=== PATIENT | male | born 1955 | race Caucasian/White ===

== ENCOUNTER 2016-12-23 20:03 | Inpatient (IN) | payer BC, MEDICARE, OTHER ==
[~2016-12-23] VITALS: Ht 181.6 cm; Wt 108.1 kg
[2016-12-23] MEDS ORDERED: NS IV 1000 ML 1,000 ML ONE (21:17)
--- NOTE | 2016-12-23 21:21 | ED Abdominal Pain ---
General Stated Complaint: VOMITING BOWEL ISSUES BACK PAIN SURGERY THIS WED Source of Information: Patient, Spouse Exam Limitations: No Limitations History of Present Illness Time Seen By Provider: 21:19 Initial Comments Patient has ER by primary conveyance with a chief complaint of left abdominal lower quadrant pain that started up yesterday after eating at a greasy spoon 2 nights ago. He says he started having a lot of pain in his LLQ abdomen and does not remember have a bowel movement for thepast couple days. He passed a small amount of rabbit pellet sized stool earlier today. He used an enema today without much stool out. He was scheduled to turn off the GB drain today but did not for fear it might worsen his pain. He put out 200 cc yesterday of bilious drainage. He has had another 100 cc since emptying the bag 14 hours ago at 0730. He is scheduled at [facility] to have his gallbladder taken out and he had some obstruction and had to have a stent and drain placed which has been draining into his leg bag. After eating he started expressing the pain one or 2 hours later that was excruciating in his right upper quadrant as well as left lower quadrant. It radiates around to the left flank. He has no history of kidney stones. He is having no dysuria. He does use Cialis for his prostate. He denies any recent trauma. Allergies and Home Medications Allergies Coded Allergies: No Known Drug Allergies (Unverified , 12/23/16) Review of Systems Constitutional: No chills, No fever EENTM: No Mouth Pain, No Mouth Swelling Respiratory: Denies Shortness of Air Cardiovascular: Denies Chest Pain, Denies Lightheadedness Gastrointestinal: See HPI, Denies Abdomen Distended, Abdominal Pain, Constipated, Denies Diarrhea, Nausea, Vomiting Genitourinary: Denies Burning, Denies Discharge Musculoskeletal: No back pain, No joint pain, No joint swelling Skin: No pruritus, No rash Psychiatric/Neurological: Denies Headache, Denies Numbness, Denies Paresthesia Past Gvclgxy-Joudun-Qihaoe Hx Patient Social History Alcohol Use: Denies Use Recreational Drug Use: No Smoking Status: Current Someday Smoker Type Used: Pipe 2nd Hand Smoke Exposure: No Recent Foreign Travel: No Contact w/Someone Who Travel: No Physical Exam Vital Signs VS - Last 72 Hours, by Label 12/23/16 20:58 Temp 98.5 Pulse 75 Resp 24 B/P (MAP) 160/107 Pulse Ox 98 O2 Delivery Room Air Capillary Refill : General Appearance: WD/WN, moderate distress (writhing in pain) HEENT: PERRL/EOMI, pharynx normal Neck: non-tender, full range of motion, normal inspection Respiratory: chest non-tender, lungs clear, normal breath sounds Cardiovascular: normal peripheral pulses, regular rate, rhythm, no edema Peripheral Pulses: 2+ Dorsalis Pedis (R), 2+ Left Dors-Pedis (L), 2+ Radial Pulses (R), 2+ Radial Pulses (L) Gastrointestinal: normal bowel sounds (towards the hypoactive end of the spectrum), distended (tympany), guarding, No rebound, tenderness (diffusely) Extremities: normal range of motion, non-tender, normal inspection, normal capillary refill Back: normal inspection Male: normal genitalia, no hernia (inguinal canals normal without palpable mass on valsalva) Neurologic/Psychiatric: alert, normal mood/affect, oriented x 3 Skin: normal color, warm/dry Focused Exam Evaluation Lactate Level Laboratory Tests 12/23/16 22:38: Lactic Acid Level 2.08*H Lactic Acid Level Laboratory Tests Test 12/23/16 22:38 Lactic Acid Level 2.08 MMOL/L (0.50-2.00) *H Progress/Results/Core Measures Results/Orders Lab Results Laboratory Tests Test 12/23/16 21:11 12/23/16 22:38 12/23/16 22:53 Range/Units White Blood Count 16.0 H 4.3-11.0 10^3/uL Red Blood Count 5.14 4.35-5.85 10^6/uL Hemoglobin 15.3 13.3-17.7 G/DL Hematocrit 42 40-54 % Mean Corpuscular Volume 82 80-99 FL Mean Corpuscular Hemoglobin 30 25-34 PG Mean Corpuscular Hemoglobin Concent 37 H 32-36 G/DL Red Cell Distribution Width 13.3 10.0-14.5 % Platelet Count 217 130-400 10^3/uL Mean Platelet Volume 11.7 H 7.4-10.4 FL Neutrophils (%) (Auto) 79 H 42-75 % Lymphocytes (%) (Auto) 12 12-44 % Monocytes (%) (Auto) 7 0-12 % Eosinophils (%) (Auto) 1 0-10 % Basophils (%) (Auto) 0 0-10 % Neutrophils # (Auto) 12.6 H 1.8-7.8 X 10^3 Lymphocytes # (Auto) 2.0 1.0-4.0 X 10^3 Monocytes # (Auto) 1.2 H 0.0-1.0 X 10^3 Eosinophils # (Auto) 0.2 0.0-0.3 10^3/uL Basophils # (Auto) 0.1 0.0-0.1 10^3/uL Neutrophils % (Manual) 67 % Lymphocytes % (Manual) 29 % Monocytes % (Manual) 1 % Eosinophils % (Manual) 3 % Basophils % (Manual) 0 % Band Neutrophils 0 % Blood Morphology Comment NORMAL Sodium Level 136 135-145 MMOL/L Potassium Level 3.4 L 3.6-5.0 MMOL/L Chloride Level 106 98-107 MMOL/L Carbon Dioxide Level 16 L 21-32 MMOL/L Anion Gap 14 5-14 MMOL/L Blood Urea Nitrogen 10 7-18 MG/DL Creatinine 1.26 0.60-1.30 MG/DL Estimat Glomerular Filtration Rate 59 BUN/Creatinine Ratio 8 Glucose Level 100 70-105 MG/DL Calcium Level 9.3 8.5-10.1 MG/DL Magnesium Level 2.3 1.8-2.4 MG/DL Total Bilirubin 1.0 0.1-1.0 MG/DL Aspartate Amino Transf (AST/SGOT) 32 5-34 U/L Alanine Aminotransferase (ALT/SGPT) 71 H 0-55 U/L Alkaline Phosphatase 120 40-136 U/L Total Protein 7.2 6.4-8.2 GM/DL Albumin 4.5 3.2-4.5 GM/DL Lipase 45 8-78 U/L Lactic Acid Level 2.08 *H 0.50-2.00 MMOL/L Urine Color YELLOW Urine Clarity CLEAR Urine pH 5 5-9 Urine Specific [place] 1.010 L 1.016-1.022 Urine Protein 1+ H NEGATIVE Urine Glucose (UA) NEGATIVE NEGATIVE Urine Ketones NEGATIVE NEGATIVE Urine Nitrite NEGATIVE NEGATIVE Urine Bilirubin NEGATIVE NEGATIVE Urine Urobilinogen NORMAL NORMAL MG/DL Urine Leukocyte Esterase NEGATIVE NEGATIVE Urine RBC (Auto) 5+ H NEGATIVE Urine RBC 0-2 /HPF Urine WBC RARE /HPF Urine Crystals NONE /LPF Urine Bacteria NEGATIVE /HPF Urine Casts NONE /LPF Urine Mucus NEGATIVE /LPF Urine Culture Indicated NO My Orders Orders - JUDD GARNER Ondansetron Injection (Zofran Injectio (12/23/16 21:30) Ketorolac Injection (Toradol Injection) (12/23/16 21:30) Saline Lock/Iv-Start (12/23/16 21:24) Ns Iv 1000 Ml (Sodium Chloride 0.9%) (12/23/16 21:24) Ns Iv 1000 Ml (Sodium Chloride 0.9%) (12/23/16 21:17) Ct Abdomen/Pelvis W (12/23/16 21:29) Cbc With Automated Diff (12/23/16 21:29) Comprehensive Metabolic Panel (12/23/16 21:29) Lactic Acid Analyzer (12/23/16 21:29) Lipase (12/23/16 21:29) Magnesium (12/23/16 21:29) Ua Culture If Indicated (12/23/16 21:29) Manual Differential (12/23/16 21:11) Iohexol Injection (Omnipaque 350 Mg/Ml 1 (12/23/16 22:15) Ns (Ivpb) (Sodium Chloride 0.9% Ivpb Bag (12/23/16 22:15) Potassium Cl 10meq/50ml Ivpb (Kcl 10 Meq (12/23/16 22:45) Fentanyl Injection (Sublimaze Injection (12/23/16 23:00) Ns Iv 500 Ml (Sodium Chloride 0.9%) (12/23/16 23:43) Ns Iv 500 Ml (Sodium Chloride 0.9%) (12/24/16 00:00) Ceftriaxone Injection (Rocephin Injectio (12/24/16 01:15) Medications Given in ED Current Medications Medications Dose Ordered Sig/Yelena Route Start Time Stop Time Status Last Admin Dose Admin Ceftriaxone Sodium 1000 mg/ Sodium Chloride 50 ml @ 100 mls/hr ONCE ONCE IV 12/24/16 01:15 12/24/16 01:44 12/24/16 01:09 100 MLS/HR Fentanyl Citrate 50 mcg ONCE ONCE IVP 12/23/16 23:00 12/23/16 23:01 DC 12/23/16 23:40 50 MCG Iohexol 100 ml ONCE ONCE IV 12/23/16 22:15 12/23/16 22:16 DC 12/23/16 22:12 100 ML Ketorolac Tromethamine 15 mg ONCE ONCE IVP 12/23/16 21:30 12/23/16 21:31 DC 12/23/16 21:26 15 MG Ondansetron HCl 4 mg ONCE ONCE IVP 12/23/16 21:30 12/23/16 21:31 DC 12/23/16 21:26 4 MG Potassium Chloride 50 ml @ 50 mls/hr ONCE ONCE IV 12/23/16 22:45 12/23/16 23:45 DC 12/23/16 23:40 50 MLS/HR Sodium Chloride 100 ml ONCE ONCE IV 12/23/16 22:15 12/23/16 22:16 DC 12/23/16 22:12 80 ML Sodium Chloride 1,000 ml @ 0 mls/hr Q0M ONCE IV 12/23/16 21:24 12/23/16 21:25 DC 12/23/16 21:26 1,000 MLS/HR Vital Signs/I&O Vital Sign - Last 12Hours 12/23/16 20:58 Temp 98.5 Pulse 75 Resp 24 B/P (MAP) 160/107 Pulse Ox 98 O2 Delivery Room Air Progress Note : Time: 21:38 Progress Note Drain seems to be working appropriately so it's unlikely to represent a biliary leak. He may be having ileus given his decreased bowel sounds and appearance of distention of his abdomen and tenderness all over. We'll get an lactate also to make sure there is not any kind of ischemia. Obstruction is certainly also a possibility however he is not hyperactive bowel sounds. Diagnostic Imaging Diagonstic Imaging: CT Plain Films/CT/US/NM/MRI: abdomen, pelvis (with) Comments Cholecystotomy tube seen in a collapsed gallbladder. A 2 mm stone in the left ureterovesical junction resulting in mild left-sided hydrogen ureter nephrosis with associated perinephric fat stranding. Mildly prominent air fluid filled small bowel loops are seen measuring up to 2.7 m diameter that may represent an ileus. Air-fluid level seen within the colon as well. This may represent diarrheal disease versus early infectious/inflammatory enterocolitis. Clinically correlates late. Hepatic steatosis. Punctate nonobstructing stone seen in the interpolar region of the left kidney. The adrenal glands, pancreas, spleen are unremarkable. Small fat-containing inguinal hernia seen on the left. Grade 1 retrolisthesis of L5 on S1. Status post appendectomy. Reviewed: Reviewed [place] Study, Reviewed by Me Departure Communication (Admissions) Time/Spoke to Admitting Phy: 01:00 Communication Patient was discussed by Dr. Shafer about his lab findings, clinical findings, ileus, kidney stone in the left UVJ, sepsis and he is willing see the patient. He recommends Rocephin IV. Impression Impression: Primary Impression: Kidney stone Additional Impressions: Sepsis Qualified Codes: A41.9 - Sepsis, unspecified organism Ileus Cholecystostomy care Disposition: ADMITTED INPATIENT Condition: Stable Admissions Decision to Admit Reason: Admit from ER (General) Decision to Admit/Date: Dec 24, 2016 Time/Decision to Admit Time: 01:41 Departure-Patient Inst. Referrals: NO,LOCAL PHYSICIAN (PCP) Primary Care Physician Copy Copies To 1: BART SHAFER MD, TITUS J Dec 23, 2016 21:21
[2016-12-23] MEDS ORDERED: NS IV 1000 ML 1,000 ML IV ONE (21:24)
[2016-12-23] MEDS ORDERED: ONDANSETRON 4 MG/2 ML (SDV) Z0FRAN IVP ONE (21:30)
[2016-12-23] MEDS ORDERED: KETOROLAC 30 MG/ML VIAL IVP ONE (21:30)
[2016-12-23 21:37] LABS: BASOPHILS # (AUTO) 0.1 10^3/uL (0.0-0.1); BASOPHILS % (AUTO) 0 % (0-10); EOSINOPHILS # (AUTO) 0.2 10^3/uL (0.0-0.3); EOSINOPHILS % (AUTO) 1 % (0-10); LYMPHOCYTES % (AUTO) 12 % (12-44); MEAN CORPUSCULAR HEMOGLOBIN 30 PG (25-34); MEAN CORPUSCULAR HGB CONC 37 G/DL (32-36); MEAN CORPUSCULAR VOLUME 82 FL (80-99); MEAN PLATELET VOLUME 11.7 FL (7.4-10.4); MONOCYTES # (AUTO) 1.2 X 10^3 (0.0-1.0); MONOCYTES % (AUTO) 7 % (0-12); NEUTROPHILS # (AUTO) 12.6 X 10^3 (1.8-7.8); NEUTROPHILS % (AUTO) 79 % (42-75); PLATELET COUNT 217 10^3/uL (130-400); RED BLOOD COUNT 5.14 10^6/uL (4.35-5.85); RED CELL DISTRIBUTION WIDTH 13.3 % (10.0-14.5)
[2016-12-23 21:49] LABS: ALBUMIN 4.5 GM/DL (3.2-4.5); CALCIUM 9.3 MG/DL (8.5-10.1); CREATININE SERUM 1.26 MG/DL (0.60-1.30); MAGNESIUM 2.3 MG/DL (1.8-2.4); POTASSIUM 3.4 MMOL/L (3.6-5.0); TOTAL PROTEIN 7.2 GM/DL (6.4-8.2)
[2016-12-23 21:55] LABS: BAND NEUTROPHILS 0 %; BASOPHILS % (MANUAL) 0 %; EOSINOPHILS % (MANUAL) 3 %; LYMPHOCYTES % (MANUAL) 29 %; NEUTROPHILS % (MANUAL) 67 %
[2016-12-23] MEDS ORDERED: IOHEXOL 350 MG/ML 100 ML (OMNIPAQUE 350) VIAL IV ONE (22:15)
[2016-12-23] MEDS ORDERED: NS 100 ML (IVPB) BAG IV ONE (22:15)
[2016-12-23] MEDS ORDERED: POTASSIUM CL 10MEQ/50ML IVPB 50 ML IV ONE (22:45)
[2016-12-23] MEDS ORDERED: fentaNYL INJECTION 100 MCG/2 ML AMP IVP ONE (23:00)
[2016-12-23 23:01] LABS: BILIRUBIN,URINE NEGATIVE (NEGATIVE); KETONES,URINE NEGATIVE (NEGATIVE); LEUKOCYTE ESTERASE ,URINE NEGATIVE (NEGATIVE); NITRITE,URINE NEGATIVE (NEGATIVE); PH,URINE 5 (5-9); PROTEIN,URINE 1+ (NEGATIVE); UROBILINOGEN,URINE NORMAL (NORMAL)
[2016-12-23 23:10] LABS: WBC,URINE RARE /HPF
[2016-12-23] MEDS ORDERED: NS IV 500 ML 500 ML ONE (23:43)
[2016-12-24] MEDS ORDERED: NS IV 500 ML 500 ML IV SCH
[2016-12-24] MEDS ORDERED: cefTRIAXone INJECTION 1,000 MG in NS (IVPB) 50 ML IV ONE (01:15)
[2016-12-24] MEDS ORDERED: fentaNYL INJECTION 100 MCG/2 ML AMP IV PRN (04:00)
[2016-12-24] MEDS ORDERED: ONDANSETRON 4 MG/2 ML (SDV) Z0FRAN IV PRN (04:00)
[2016-12-24] MEDS: ALFUZOSIN HCL 10 MG TAB (UROXATRAL) PO SCH ×2 (04:03→20:14)
[2016-12-24] MEDS: NS IV 1000 ML 1,000 ML IV SCH (04:03)
[2016-12-24] MEDS: KETOROLAC 15 MG/ML VIAL IV PRN ×2 (04:04→12:10)
[2016-12-24 04:05] VITALS: BP 125/80
[2016-12-24 06:06] LABS: BASOPHILS % (AUTO) 0 % (0-10); EOSINOPHILS # (AUTO) 0.2 10^3/uL (0.0-0.3); EOSINOPHILS % (AUTO) 2 % (0-10); LYMPHOCYTES % (AUTO) 20 % (12-44); MEAN CORPUSCULAR HEMOGLOBIN 30 PG (25-34); MEAN CORPUSCULAR HGB CONC 36 G/DL (32-36); MEAN CORPUSCULAR VOLUME 83 FL (80-99); MEAN PLATELET VOLUME 11.5 FL (7.4-10.4); MONOCYTES # (AUTO) 0.9 X 10^3 (0.0-1.0); MONOCYTES % (AUTO) 9 % (0-12); NEUTROPHILS # (AUTO) 6.8 X 10^3 (1.8-7.8); NEUTROPHILS % (AUTO) 69 % (42-75); PLATELET COUNT 180 10^3/uL (130-400); RED BLOOD COUNT 4.78 10^6/uL (4.35-5.85); RED CELL DISTRIBUTION WIDTH 13.4 % (10.0-14.5); WHITE BLOOD COUNT 9.9 10^3/uL (4.3-11.0)
[2016-12-24 06:24] LABS: ANION GAP 9 MMOL/L (5-14); BLOOD UREA NITROGEN 10 MG/DL (7-18); BUN/CREATININE RATIO 9; CALCIUM 8.4 MG/DL (8.5-10.1); CARBON DIOXIDE 20 MMOL/L (21-32); CHLORIDE 109 MMOL/L (98-107); GFR ESTIMATED > 60; GLUCOSE 88 MG/DL (70-105); POTASSIUM 3.3 MMOL/L (3.6-5.0); SODIUM 138 MMOL/L (135-145)
[2016-12-24 08:00] VITALS: BP 105/68
--- NOTE | 2016-12-24 08:55 | Diagnostic Imaging Report ---
PROCEDURE: CT abdomen and pelvis with contrast. TECHNIQUE: Multiple contiguous axial images were obtained through the abdomen and pelvis after administration of intravenous contrast. INDICATION: Abdominal pain and constipation. FINDINGS: There is minimal atelectasis in the left lung base. There is diffuse fatty infiltration of the liver. The spleen, the pancreas, and adrenal glands appear unremarkable. There is a cholecystostomy tube seen. There is a decompressed gallbladder without stones seen. No surrounding inflammatory changes or fluid. There is an obstructive stone measuring 2 mm at the left UVJ resulting in mild hydroureteronephrosis on the left side. The right kidney demonstrates a 2-mm stone in the interpolar region. No hydronephrosis on the right side. The abdominal aorta is normal in caliber. The prostate is 5.9 cm in transverse dimension, enlarged. There is excessive amount of fluid in the colon and some bowel loops without significant dilatation. This could relate to enteritis. The gastric wall is also thickened. The osseous structures demonstrate a 9-mm sclerotic focus in T11 vertebral body. IMPRESSION: 1. There is mild hydroureteronephrosis on the left side secondary to a 2-mm stone at the left UVJ. 2. Findings may relate to gastroenteritis. 3. Cholecystectomy tube in place. Dictated by: Dictated on workstation # [id number]
--- NOTE | 2016-12-24 09:23 | History & Physical-Hospitalist ---
HPI History of Present Illness: HPI/Chief Complaint CC: Abd pain HPI: Pt is a 61yoCM with a PMH of parkinson's disease, and cholecystitis with cholecystostomy placement on 10/22/2016 at [facility] who presented with abd pain. He was told by his surgeon in to turn the drain off last week and then he developed LLQ abd pain and back pain on Saturday. He then turned the drain back on without any improvement. He also complains of "burning up." He was to have surgery to remove the drain this Saturday. His pain continued to worsen over the weekend prompting him to seek evaluation in the ER where he was found to meet sepsis criteria and admitted for abx and pain management. Source: patient, family Date Seen 12/24/16 Time Seen by Provider: 09:00 Attending Physician Wyatt Conte MD PCP No,Local Physician Referring Physician Date of Admission Dec 24, 2016 at 01:35 Home Medications & Allergies Home Medications Reviewed patient Home Medication Reconciliation Form Allergies Allergies Coded Allergies No Known Drug Allergies (Unverified12/23/16) Past Pajsecn-Hnompe-Wlnmay Hx Patient Social History Alcohol Use: Denies Use Recreational Drug Use: No Smoking Status: Current Everyday Smoker Type Used: Pipe 2nd Hand Smoke Exposure: No Physical Abuse Screen: No Sexual Abuse: No Recent Foreign Travel: No Contact w/other who traveled: No Recent Hopitalizations: Yes Recent Infectious Disease Expo: No Seasonal Allergies Seasonal Allergies: Yes Surgeries Abdominal Respiratory No Cardiovascular No Neurological Yes Parkinson's Disease Reproductive System Sexually Transmitted Disease: No HIV/AIDS: No Genitourinary Prostate Problems, UTI-Chronic Gastrointestinal Gastroesophageal Reflux, Hemorrhoids, Gall Bladder Disease Musculoskeletal No Endocrine History of Endocrine Disorders: No HEENT History of HEENT Disorders: Yes HEENT Disorders: Glaucoma Loss of Vision: Bilateral Hearing Impairment: Hard of Hearing Cancer No Psychosocial History of Psychiatric Problem: No Integumentary History of Skin or Integumenta: No Blood Transfusions History of Blood Disorders: No Review of Systems Constitutional: chills, fever, weakness EENTM: no symptoms reported Respiratory: No cough, No short of breath Cardiovascular: No chest pain, No palpitations Gastrointestinal: abdominal pain (LLQ), No nausea Genitourinary: No dysuria, No frequency Psychiatric/Neurological: Tremors Physical Exam Physical Exam Vital Signs Vital Sign - Last 12Hours 12/23/16 20:58 Temp 98.5 Pulse 75 Resp 24 B/P (MAP) 160/107 Pulse Ox 98 O2 Delivery Room Air Capillary Refill : Less Than 3 Seconds General Appearance: No Apparent Distress, WD/WN HEENT: PERRL/EOMI, No Scleral Icterus (L), No Scleral Icterus (R) Neck: Non Tender, Supple Respiratory: Lungs Clear, No Accessory Muscle Use, No Respiratory Distress Cardiovascular: Regular Rate, Rhythm, No Edema, No Murmur Gastrointestinal: Normal Bowel Sounds, Non Tender, Soft, Tenderness (to palpation in LLQ) Neurologic/Psychiatric: Alert, Oriented x3 Results Results/Procedures Lab Laboratory Tests 12/23/16 21:11 12/24/16 05:[address] Abd/Pelvis IMPRESSION: 1. There is mild hydroureteronephrosis on the left side secondaryto a 2-mm stone at the left UVJ. 2. Findings may relate to gastroenteritis. 3. Cholecystectomy tube in place Assessment/Plan Admission Diagnosis Sepsis Assessment and Plan See Problems Diagnosis/Problems Diagnosis/Problems (1) Sepsis Status: Resolved Assessment & Plan: met sepsis criteria on arrival but now resolved Will continue on Rocephin Day #2 Will get blood cultures Will obstructing stone- will consulte Urology for evaluation Will also consult Surgery given cholecystostomy tube - Culture drainage Qualifiers: Qualified Codes: A41.9 - Sepsis, unspecified organism (2) Cholecystostomy care Status: Acute Assessment & Plan: In place since 10/2016, follows with Dr Guajardo in Will consult Surgery here for evaluation (3) Parkinson disease Status: Chronic Assessment & Plan: At Baseline, holding home meds while NPO (4) Hypokalemia Status: Acute Assessment & Plan: Will replace (5) Prophylactic measure Assessment & Plan: SCDs for now until surgical evaluation NPO Clinical Quality Measures DVT/VTE Risk/Contraindication: Risk Factor Score Per Nursin RFS Level Per Nursing on Admit: 4+=Very High KIRSTEN HERNDON MD Dec 24, 2016 09:23
[2016-12-24] MEDS ORDERED: CARB1TAB19 PO (09:26)
[2016-12-24] MEDS ORDERED: TADA5TAB3 PO (09:26)
[2016-12-24] MEDS ORDERED: ROPI4TAB3 PO (09:29)
[2016-12-24] MEDS ORDERED: CETI10TA20 PO (09:29)
[2016-12-24] MEDS ORDERED: FLUT9.9S NS (09:29)
[2016-12-24] MEDS ORDERED: ONDA4TAB10 PO (09:32)
[2016-12-24 12:00] VITALS: BP 106/69
--- NOTE | 2016-12-24 12:04 | Consultation ---
History of Present Illness History of Present Illness Patient Consulted On(alejandro/time) 12/24/16 11:57 Time Seen by Provider: 11:29 History of Present Illness Surgery asked to consult regarding LLQ abdominal pain, hydroureter (Urologist out of town) and Cholecystostomy tube management. HPI: Pt is a 61yoCM with a PMH of parkinson's disease, and cholecystitis with cholecystostomy placement on 10/22/2016 at [facility] who presented to the ER last night with severe abd pain. He told ER physician he thinks it started after eating at the "[employer]" restaurant on Saturday. He was told by his surgeon in to turn the drain off Saturday for planned surgery on Saturday. Because of the LLQ abd pain and back pain; he then turned the drain back on without any improvement. He also complained of some constipation and then small "rabbit sized pellets of poop." He also complained of "burning up" last night. His pain continued to worsen over the weekend prompting him to seek evaluation in the ER. He was found to meet sepsis criteria and admitted for abx and pain management. Nothing seemed to make pain better. When seen today he denied any pain since maybe 4 am, he denies dysuria or hematuria. He denies every having Kidney stone before, but states over past few weeks he has been drinking "a lot more soda, because my stomach has been upset". He states he has some occasional left inguinal pain, but never bad and has not noticed a bulge. States his son and father have had hernia repairs. Allergies and Home Medications Allergies Coded Allergies: No Known Drug Allergies (Unverified , 12/23/16) Home Medications Carbidopa/Levodopa 1 Each Tablet, 1 TAB PO 0730,1400,193, (Reported) Cetirizine HCl 10 Mg Tablet, 10 MG PO DAILY, (Reported) Fluticasone Propionate 9.9 Ml Melvin.susp, 2 SPRAY NS HS, (Reported) Ondansetron HCl 4 Mg Tablet, 4 MG PO Q8H PRN for NAUSEA/VOMITING-1ST LINE, ( Reported) Ropinirole HCl 4 Mg Tablet, 4 MG PO 0730,1400,1930, (Reported) Tadalafil 5 Mg Tablet, 5 MG PO HS, (Reported) Past Gwvzmvy-Zbenjy-Yhdter Hx Patient Social History Alcohol Use: Denies Use Recreational Drug Use: No Smoking Status: Current Everyday Smoker Type Used: Pipe 2nd Hand Smoke Exposure: No Recent Foreign Travel: No Contact w/Someone Who Travel: No Recent Infectious Disease Expo: No Recent Hopitalizations: Yes Physical Abuse Screen: No Sexual Abuse: No Seasonal Allergies Seasonal Allergies: Yes Surgeries Surgeries: Abdominal Respiratory History of Respiratory Disorde: No Cardiovascular History of Cardiac Disorders: No Neurological History of Neurological Disord: Yes Neurological Disorders: Parkinson's Disease Reproductive System Sexually Transmitted Disease: No HIV/AIDS: No Genitourinary Genitourinary Disorders: Prostate Problems, UTI-Chronic Gastrointestinal Gastrointestinal Disorders: Gastroesophageal Reflux, Hemorrhoids, Gall Bladder Disease Musculoskeletal History of Musculoskeletal Dis: No Endocrine History of Endocrine Disorders: No HEENT History of HEENT Disorders: Yes HEENT Disorders: Glaucoma Loss of Vision: Bilateral Hearing Impairment: Hard of Hearing Cancer History of Cancer: No Psychosocial History of Psychiatric Problem: No Integumentary History of Skin or Integumenta: No Blood Transfusions History of Blood Disorders: No Family Medical History Significant Family History: Hypertension (Mother and Father), Other Conditions/ Hx (Mother has dementia from Alzheimer's) Review of Systems-General Constitutional: chills, fever, weakness EENTM: hearing loss, blurred vision, No epistaxis, No throat swelling Respiratory: No cough, No dyspnea on exertion, No hemoptysis, No short of breath Cardiovascular: No chest pain, No Hx of Intervention, No palpitations Gastrointestinal: RUQ, LLQ, constipation, No diarrhea, No hematemesis, No melena, No vomiting Genitourinary: No dysuria, frequency, No hematuria, hesitancy Musculoskeletal: No back pain, No joint pain, muscle stiffness Skin: No dryness, No lesions, No lumps Psychiatric/Neurological: Denies Anxiety, Denies Depressed, Tremors ( Parkinsons dz) Physical Exam-General Problems Physical Exam Vital Signs Vital Sign - Last 12Hours 12/23/16 20:58 Temp 98.5 Pulse 75 Resp 24 B/P (MAP) 160/107 Pulse Ox 98 O2 Delivery Room Air Capillary Refill : Less Than 3 Seconds General Appearance: WD/WN, no apparent distress Eyes: Bilateral Eye PERRL, Bilateral Eye EOMI HEENT: pharynx normal, No scleral icterus (R), No scleral icterus (L), No pale conjunctivae (R), No pale conjunctivae (L) Neck: non-tender, full range of motion, supple Respiratory: chest non-tender, lungs clear, normal breath sounds, no respiratory distress, no accessory muscle use Cardiovascular: regular rate, rhythm, no edema, no murmur Gastrointestinal: normal bowel sounds, soft, no organomegaly, tenderness (RUQ and LLQ plus left flank), other (Cholecystostomy tube in RUQ) Rectal: deferred Back: CVA tenderness (L), No vertebral tenderness Extremities: no pedal edema, no calf tenderness, normal capillary refill Neurologic/Psychiatric: alert, oriented x 3, depressed affect, other Skin: normal color, warm/dry Lymphatic: no adenopathy (neck, axilla or groin) Data Review Labs Laboratory Tests 12/23/16 21:11: White Blood Count 16.0H, Red Blood Count 5.14, Hemoglobin 15.3, Hematocrit 42, Mean Corpuscular Volume 82, Mean Corpuscular Hemoglobin 30, Mean Corpuscular Hemoglobin Concent 37H, Red Cell Distribution Width 13.3, Platelet Count 217, Mean Platelet Volume 11.7H, Neutrophils (%) (Auto) 79H, Lymphocytes (%) (Auto) 12, Monocytes (%) (Auto) 7, Eosinophils (%) (Auto) 1, Basophils (%) (Auto) 0, Neutrophils # (Auto) 12.6H, Lymphocytes # (Auto) 2.0, Monocytes # (Auto) 1.2H, Eosinophils # (Auto) 0.2, Basophils # (Auto) 0.1, Neutrophils % (Manual) 67, Lymphocytes % (Manual) 29, Monocytes % (Manual) 1, Eosinophils % (Manual) 3, Basophils % (Manual) 0, Band Neutrophils 0, Blood Morphology Comment NORMAL, Sodium Level 136, Potassium Level 3.4L, Chloride Level 106, Carbon Dioxide Level 16L, Anion Gap 14, Blood Urea Nitrogen 10, Creatinine 1.26, Estimat Glomerular Filtration Rate 59, BUN/Creatinine Ratio 8, Glucose Level 100, Calcium Level 9.3, Magnesium Level 2.3, Total Bilirubin 1.0, Aspartate Amino Transf (AST/SGOT) 32, Alanine Aminotransferase (ALT/SGPT) 71H, Alkaline Phosphatase 120, Total Protein 7.2, Albumin 4.5, Lipase 45 12/23/16 22:38: Lactic Acid Level 2.08*H 12/23/16 22:53: Urine Color YELLOW, Urine Clarity CLEAR, Urine pH 5, Urine Specific Kenna 1.010L, Urine Protein 1+H, Urine Glucose (UA) NEGATIVE, Urine Ketones NEGATIVE, Urine Nitrite NEGATIVE, Urine Bilirubin NEGATIVE, Urine Urobilinogen NORMAL, Urine Leukocyte Esterase NEGATIVE, Urine RBC (Auto) 5+H, Urine RBC 0-2, Urine WBC RARE, Urine Crystals NONE, Urine Bacteria NEGATIVE, Urine Casts NONE, Urine Mucus NEGATIVE, Urine Culture Indicated NO 12/24/16 01:00: Lactic Acid Level 1.63 12/24/16 05:45: White Blood Count 9.9, Red Blood Count 4.78, Hemoglobin 14.4, Hematocrit 40, Mean Corpuscular Volume 83, Mean Corpuscular Hemoglobin 30, Mean Corpuscular Hemoglobin Concent 36, Red Cell Distribution Width 13.4, Platelet Count 180, Mean Platelet Volume 11.5H, Neutrophils (%) (Auto) 69, Lymphocytes (%) (Auto) 20 , Monocytes (%) (Auto) 9, Eosinophils (%) (Auto) 2, Basophils (%) (Auto) 0, Neutrophils # (Auto) 6.8, Lymphocytes # (Auto) 2.0, Monocytes # (Auto) 0.9, Eosinophils # (Auto) 0.2, Basophils # (Auto) 0.0, Sodium Level 138, Potassium Level 3.3L, Chloride Level 109H, Carbon Dioxide Level 20L, Anion Gap 9, Blood Urea Nitrogen 10, Creatinine 1.10, Estimat Glomerular Filtration Rate > 60, BUN/ Creatinine Ratio 9, Glucose Level 88, Calcium Level 8.4L Assessment/Plan Assessment/Plan Assessment/Plan 1. LLQ pain secondary to #2 2. Left Ureterolithiasis, 2mm stone stuck at UVJ 3. Microscopic Hematuria, no bacteria seen on UA and culture not indicated 4. Left inguinal hernia 5. Cholecystomy tube I do not believe the abdominal pain has anything to do with intestines or cholecystomy tube. He does have a LIH, confirmed by CT but this is not where pt is describing his pain. LIH does not need to be fixed unless it becomes problem in the future. Pt has reported perinephric stranding and 2mm stone stuck at UVJ per radiology reading. Needs to increase fluids, stop drinking soda and strain his urine. I also recommended he call surgeon today to see if they would want to delay his surgery or proceed with it on Saturday. Told pt to go ahead and close cholecystostomy tube off again. He can be d/c'd with Toradol for pain and strainer for urine (to make sure he passes stone). No surgery necessary at this time, thank you for this consult. Diagnosis/Problems Diagnosis/Problems (1) Sepsis Status: Resolved Assessment & Plan: met sepsis criteria on arrival but now resolved Will continue on Rocephin Day #2 Will get blood cultures Will obstructing stone- will consulte Urology for evaluation Will also consult Surgery given cholecystostomy tube - Culture drainage Qualifiers: Qualified Codes: A41.9 - Sepsis, unspecified organism (2) Cholecystostomy care Status: Acute Assessment & Plan: In place since 10/2016, follows with Dr Guajardo in [place] Will consult Surgery here for evaluation (3) Parkinson disease Status: Chronic Assessment & Plan: At Baseline, holding home meds while NPO (4) Hypokalemia Status: Acute Assessment & Plan: Will replace (5) Prophylactic measure Assessment & Plan: SCDs for now until surgical evaluation NPO Clinical Quality Measures DVT/VTE Risk/Contraindication: Risk Factor Score Per Nursin RFS Level Per Nursing on Admit: 4+=Very High JANEL JACKSON DO Dec 24, 2016 12:04
[2016-12-24] MEDS: SINEMET 25/100 (CARBIDOPA/LEVODOPA) TAB PO SCH ×2 (15:44→20:14)
[2016-12-24] MEDS: rOPINIRole 1 MG (REQUIP) TABLET PO SCH ×2 (15:46→20:14)
[2016-12-24 16:30] VITALS: BP 103/62
[2016-12-24 19:30] VITALS: BP 114/65
[2016-12-24] MEDS ORDERED: NON-FORMULARY MEDICATION 1 EA EA (Tadalafil 5 MG) PO SCH (21:00)
[2016-12-24] MEDS ORDERED: cefTRIAXone 1 GM/NS 50 ML IVPB IV SCH ×2 (21:00)
[2016-12-24] MEDS ORDERED: FLUTICASONE NASAL SPRAY (FLONASE) 16 GM BTL NS SCH (21:00)
[2016-12-25 00:35] VITALS: BP 121/61
[2016-12-25] MEDS: NS IV 1000 ML 1,000 ML IV SCH (00:38)
[2016-12-25 04:37] VITALS: BP 126/62
[2016-12-25 06:05] LABS: BASOPHILS % (AUTO) 1 % (0-10); EOSINOPHILS # (AUTO) 0.3 10^3/uL (0.0-0.3); EOSINOPHILS % (AUTO) 4 % (0-10); LYMPHOCYTES # (AUTO) 2.6 X 10^3 (1.0-4.0); LYMPHOCYTES % (AUTO) 33 % (12-44); MEAN CORPUSCULAR HEMOGLOBIN 30 PG (25-34); MEAN CORPUSCULAR HGB CONC 36 G/DL (32-36); MEAN CORPUSCULAR VOLUME 84 FL (80-99); MEAN PLATELET VOLUME 11.6 FL (7.4-10.4); MONOCYTES # (AUTO) 0.7 X 10^3 (0.0-1.0); MONOCYTES % (AUTO) 8 % (0-12); NEUTROPHILS # (AUTO) 4.3 X 10^3 (1.8-7.8); NEUTROPHILS % (AUTO) 55 % (42-75); PLATELET COUNT 171 10^3/uL (130-400); RED BLOOD COUNT 4.47 10^6/uL (4.35-5.85); RED CELL DISTRIBUTION WIDTH 13.4 % (10.0-14.5); WHITE BLOOD COUNT 7.9 10^3/uL (4.3-11.0)
[2016-12-25 06:25] LABS: ANION GAP 10 MMOL/L (5-14); BLOOD UREA NITROGEN 9 MG/DL (7-18); BUN/CREATININE RATIO 10; CALCIUM 8.4 MG/DL (8.5-10.1); CARBON DIOXIDE 20 MMOL/L (21-32); CHLORIDE 108 MMOL/L (98-107); CREATININE SERUM 0.92 MG/DL (0.60-1.30); GFR ESTIMATED > 60; GLUCOSE 101 MG/DL (70-105); POTASSIUM 3.4 MMOL/L (3.6-5.0); SODIUM 138 MMOL/L (135-145)
[2016-12-25 07:47] VITALS: BP 129/67
--- NOTE | 2016-12-25 07:49 | Discharge Summary-Hospitalist ---
Diagnosis/Chief Complaint Date of Admission Dec 24, 2016 at 01:35 Date of Discharge 12/25/16 Admission Diagnosis Sepsis Discharge Diagnosis See Problems (1) Sepsis Status: Resolved Assessment & Plan: met sepsis criteria on arrival but resolved - Source unknown Will transition to oral Keflex to complete 7 days Surgery consulted- no surgical intervention necessary at this time He called his surgeon Dr Guajardo in and plan is to proceed with drain removal per them tomorrow (2) Ureterolithiasis Status: Acute Assessment & Plan: Seen on CT, will have strain urine to ensure passes (3) Cholecystostomy care Status: Acute Assessment & Plan: In place since 10/2016, follows with Dr Guajardo in Plan for removal tomorrow with Dr Guajardo (4) Parkinson disease Status: Chronic Assessment & Plan: At Baseline, holding home meds while NPO (5) Hypokalemia Status: Resolved Discharge Summary Consultations General Surgery- Dr. Redmond Discharge Physical Examination Allergies: Coded Allergies: No Known Drug Allergies (Unverified , 12/23/16) Vitals & I&Os Vital Signs Date Time Temp Pulse Resp B/P (MAP) Pulse Ox O2 Delivery O2 Flow Rate FiO2 12/25/16 04:37 98.6 75 20 126/62 94 Room Air Hospital Course Mr Porter was admitted for abd pain concerning for sepsis on arrival. He was start on Rocephin and leukocytosis and symptoms improved. UA was unremarkable for infection. CT Abd/Pelvis showed a LIH, left ureteral stone, and cholecystomy tube in place. Surgery was consulted and did not think surgery was warranted at this time and symptoms due to stone. Given marked improvement from antibiotics will transition to oral antibiotics to complete 7 day course. He has an appointment with his surgeon tomorrow from cholecystomy tube removal. Advised to keep that appointment. Labs (last 24 hrs) Laboratory Tests 12/25/16 05:54: White Blood Count 7.9, Red Blood Count 4.47, Hemoglobin 13.4, Hematocrit 38L, Mean Corpuscular Volume 84, Mean Corpuscular Hemoglobin 30, Mean Corpuscular Hemoglobin Concent 36, Red Cell Distribution Width 13.4, Platelet Count 171, Mean Platelet Volume 11.6H, Neutrophils (%) (Auto) 55, Lymphocytes (%) (Auto) 33 , Monocytes (%) (Auto) 8, Eosinophils (%) (Auto) 4, Basophils (%) (Auto) 1, Neutrophils # (Auto) 4.3, Lymphocytes # (Auto) 2.6, Monocytes # (Auto) 0.7, Eosinophils # (Auto) 0.3, Basophils # (Auto) 0.0, Sodium Level 138, Potassium Level 3.4L, Chloride Level 108H, Carbon Dioxide Level 20L, Anion Gap 10, Blood Urea Nitrogen 9, Creatinine 0.92, Estimat Glomerular Filtration Rate > 60, BUN/ Creatinine Ratio 10, Glucose Level 101, Calcium Level 8.4L Pending Labs Laboratory Tests 12/25/16 05:54: White Blood Count 7.9, Red Blood Count 4.47, Hemoglobin 13.4, Hematocrit 38, Mean Corpuscular Volume 84, Mean Corpuscular Hemoglobin 30, Mean Corpuscular Hemoglobin Concent 36, Red Cell Distribution Width 13.4, Platelet Count 171, Mean Platelet Volume 11.6, Neutrophils (%) (Auto) 55, Lymphocytes (%) (Auto) 33 , Monocytes (%) (Auto) 8, Eosinophils (%) (Auto) 4, Basophils (%) (Auto) 1, Neutrophils # (Auto) 4.3, Lymphocytes # (Auto) 2.6, Monocytes # (Auto) 0.7, Eosinophils # (Auto) 0.3, Basophils # (Auto) 0.0, Sodium Level 138, Potassium Level 3.4, Chloride Level 108, Carbon Dioxide Level 20, Anion Gap 10, Blood Urea Nitrogen 9, Creatinine 0.92, Estimat Glomerular Filtration Rate > 60, BUN/ Creatinine Ratio 10, Glucose Level 101, Calcium Level 8.4 Discharge Home Medications: Active Scripts Active Reported Ondansetron HCl 4 Mg Tablet 4 Mg PO Q8H PRN Flonase Allergy Relief (Fluticasone Propionate) 9.9 Ml Meherrin.susp 2 Meherrin NS HS Ropinirole HCl 4 Mg Tablet 4 Mg PO 0730,1400,1930 Zyrtec (Cetirizine HCl) 10 Mg Tablet 10 Mg PO DAILY Carbidopa-Levodopa 25-100 Tab (Carbidopa/Levodopa) 1 Each Tablet 1 Tab PO 0730, 1400,1930 Tadalafil 5 Mg Tablet 5 Mg PO HS Condition at discharge Improved, stable Instructions to patient/family Please see electronic discharge instructions given to patient. Clinical Quality Measures DVT/VTE Risk/Contraindication: Risk Factor Score Per Nursin RFS Level Per Nursing on Admit: 4+=Very High Problem Qualifiers (1) Sepsis: Sepsis type: sepsis due to unspecified organism Qualified Codes: A41.9 - Sepsis, unspecified organism KIRSTEN HERNDON MD Dec 25, 2016 07:49
[2016-12-25] MEDS ORDERED: CEPH-507 PO (07:51)
[2016-12-25] MEDS ORDERED: KETO10TA PO (07:53)
[2016-12-25] MEDS: rOPINIRole 1 MG (REQUIP) TABLET PO SCH (08:47)
[2016-12-25] MEDS: SINEMET 25/100 (CARBIDOPA/LEVODOPA) TAB PO SCH (08:47)
[2016-12-25] MEDS ORDERED: LORATADINE (CLARITIN) 10 MG TAB PO SCH (09:00)
[2016-12-25 10:00] VITALS: BP 138/88
== END 2016-12-25 10:00 | disposition home or self-care (01) | DRG 872 ==
LOC: EDUNIT# 20:03 → ER 20:06 → 4TH 12-24 01:35
PROVIDERS: ADMIT Internal Medicine; ATTEND Internal Medicine
DX: A41.9 Sepsis, unspecified organism (principal); N20.1 Calculus of ureter; R31.29 Other microscopic hematuria; G20 Parkinson's disease; E87.6 Hypokalemia; K40.90 Unilateral inguinal hernia, without obstruction or gangrene, not specified as recurrent; F17.210 Nicotine dependence, cigarettes, uncomplicated; Z93.59 Other cystostomy status
CPT/HCPCS: 36415; 74177; 80048; 80053; 81000; 83605; 83690; 83735; 85007; 85025; 85027; 87040; 87070; 87077; 87186; 87205

== ENCOUNTER → 2016-12-25 | Outpatient (CLI) | payer BC ==
[~2016-12-25] MED LIST: CARB1TAB19 PO; CEPH-507 PO; CETI10TA20 PO; FLUT9.9S NS; KETO10TA PO; ONDA4TAB10 PO; ROPI4TAB3 PO; TADA5TAB3 PO
[2017-01-02 08:49] LABS: KIDNEY STONE WEIGHT 10 MG
[2017-01-02 08:50] LABS: KIDNEY STONE COMPOSITION SEE FOOTNOTE; KIDNEY STONE DESCRIPTION SEE FOOTNOTE; STONE NUMBER 1
== END ==
LOC: LAB 15:30
PROVIDERS: ATTEND Surgery
DX: N20.0 Calculus of kidney; N39.0 Urinary tract infection, site not specified
CPT/HCPCS: 88300

== ENCOUNTER 2017-07-20 18:39 | Emergency (ER) | payer BC ==
[~2017-07-20] VITALS: Ht 180.3 cm; Wt 108.9 kg
[2017-07-20] MEDS ORDERED: NS IV 1000 ML 1,000 ML IV SCH ×2 (19:00→19:45)
[2017-07-20] MEDS ORDERED: ONDANSETRON 4 MG/2 ML (SDV) Z0FRAN IVP ONE ×2 (19:00→19:15)
[2017-07-20 19:14] LABS: BASOPHILS % (AUTO) 0 % (0-10); EOSINOPHILS # (AUTO) 0.1 10^3/uL (0.0-0.3); EOSINOPHILS % (AUTO) 1 % (0-10); HEMATOCRIT 48 % (40-54); HEMOGLOBIN 17.1 G/DL (13.3-17.7); LYMPHOCYTES # (AUTO) 1.7 X 10^3 (1.0-4.0); LYMPHOCYTES % (AUTO) 10 % (12-44); MEAN CORPUSCULAR HEMOGLOBIN 31 PG (25-34); MEAN CORPUSCULAR HGB CONC 36 G/DL (32-36); MEAN CORPUSCULAR VOLUME 85 FL (80-99); MEAN PLATELET VOLUME 11.3 FL (7.4-10.4); MONOCYTES # (AUTO) 1.4 X 10^3 (0.0-1.0); MONOCYTES % (AUTO) 9 % (0-12); NEUTROPHILS # (AUTO) 13.1 X 10^3 (1.8-7.8); NEUTROPHILS % (AUTO) 80 % (42-75); PLATELET COUNT 162 10^3/uL (130-400); RED BLOOD COUNT 5.61 10^6/uL (4.35-5.85); RED CELL DISTRIBUTION WIDTH 13.1 % (10.0-14.5); WHITE BLOOD COUNT 16.3 10^3/uL (4.3-11.0)
[2017-07-20] MEDS ORDERED: fentaNYL INJECTION 100 MCG/2 ML AMP IVP ONE (19:15)
--- NOTE | 2017-07-20 19:18 | ED GU-Male ---
General Stated Complaint: POSS KIDNEY STONE,DEHYDRATED,VOMITING Source: patient, family Exam Limitations: no limitations History of Present Illness Date Seen by Provider: Jul 20, 2017 Time Seen by Provider: 19:15 Initial Comments To ER per private vehicle from home accompanied by his with reports of right flank pain for 3 days. He believes himself to have a kidney stone. He has a kidney stone history most recently in 2016. He's been unable to eat or even drink anything due to the nausea and vomiting that began today around noon. He reports chills but no measured fevers and has checked them at home. He' s been taking leftover Percocet and ketorolac at home most recently ketorolac at 5 PM. He denies any significant improvement in his pain. He is mostly concerned about dehydration as his urine is dark, his mouth is very dry and is been vomiting. Primary care provider is Dr. Norris at [facility]. He's been very pleased with her care of his Parkinson's disease so they did not switch physicians after moving to [place]. Timing/Duration: constant Severity/Quality: moderate Location: unknown Radiation: none Activities at Onset: none Prior Genitourinary Problems: none Allergies and Home Medications Allergies Coded Allergies: No Known Drug Allergies (Unverified , 12/23/16) Home Medications Carbidopa/Levodopa 1 Each Tablet, 1 TAB PO 0730,1399,1929, (Reported) Hydrocodone Bit/Acetaminophen 1 Ea Tablet, 1 EA PO Q4H, (Reported) Ketorolac Tromethamine 10 Mg Tablet, 10 MG PO Q6H PRN for PAIN-MODERATE TO SEVERE Prescribed by: KIRSTEN HERNDON on 12/25/16 0753 Ondansetron 8 Mg Tab.rapdis, 8 MG PO Q6H Prescribed by: MATT MOSQUEDA on 07/20/171955 Ondansetron HCl 4 Mg Tablet, 4 MG PO Q8H PRN for NAUSEA/VOMITING-1ST LINE, ( Reported) Ropinirole HCl 4 Mg Tablet, 4 MG PO 0730,1400,0, (Reported) Sulfamethoxazole/Trimethoprim 1 Each Tablet, 1 EACH PO BID Prescribed by: MATT MOSQUDEA on 07/20/171955 Tadalafil 5 Mg Tablet, 5 MG PO HS, (Reported) Patient Home Medication List Home Medication List Reviewed: Yes Review of Systems Constitutional: see HPI, chills; No fever EENTM: see HPI Respiratory: no symptoms reported Cardiovascular: no symptoms reported Gastrointestinal: abdominal pain, nausea, vomiting Genitourinary: see HPI, flank pain Musculoskeletal: see HPI Skin: no symptoms reported Psychiatric/Neurological: No Symptoms Reported Endocrine: No Symptoms Reported Past Qpoxkct-Ttrgzg-Gnottv Hx Patient Social History Type Used: Pipe 2nd Hand Smoke Exposure: No Recent Hopitalizations: Yes Seasonal Allergies Seasonal Allergies: Yes Past Medical History Abdominal Respiratory: No Cardiac: No Neurological: Yes Parkinson's Disease Sexually Transmitted Disease: No HIV/AIDS: No Prostate Problems, UTI-Chronic Gastroesophageal Reflux, Hemorrhoids, Gall Bladder Disease Musculoskeletal: No Endocrine: No HEENT: Yes Glaucoma Loss of Vision: Bilateral Hearing Impairment: Hard of Hearing Cancer: No Psychosocial: No Integumentary: No Blood Disorders: No Family Medical History Hypertension, Other Conditions/Hx Physical Exam Vital Signs Vital Signs - First Documented 07/20/17 19:00 Temp 99.2 Pulse 79 Resp 20 B/P (MAP) 142/91 (108) Pulse Ox 97 O2 Delivery Room Air Capillary Refill : General Appearance: WD/WN, no apparent distress HEENT: PERRL/EOMI, normal ENT inspection Neck: non-tender, full range of motion Respiratory: normal breath sounds, no respiratory distress, no accessory muscle use Gastrointestinal: normal bowel sounds, soft, tenderness (Right lower abdomen) Extremities: normal range of motion, non-tender Neurologic/Psychiatric: alert, normal mood/affect, oriented x 3 Skin: normal color, warm/dry Progress/Results/Core Measures Suspected Sepsis SIRS Temperature: Pulse: Respiratory Rate: Laboratory Tests 07/20/17 19:07: White Blood Count 16.3H Blood Pressure / Mean: Laboratory Tests 07/20/17 19:07: Creatinine 1.68H, Platelet Count 162, Total Bilirubin 1.5H Results/Orders Lab Results Laboratory Tests Test 07/20/17 19:03 07/20/17 19:07 Range/Units Urine Color BOZENA H Urine Clarity CLEAR Urine pH 5 5-9 Urine Specific [place] 1.025 H 1.016-1.022 Urine Protein 2+ H NEGATIVE Urine Glucose (UA) NEGATIVE NEGATIVE Urine Ketones 1+ H NEGATIVE Urine Nitrite NEGATIVE NEGATIVE Urine Bilirubin NEGATIVE NEGATIVE Urine Urobilinogen 1 NORMAL MG/DL Urine Leukocyte Esterase 1+ H NEGATIVE Urine RBC (Auto) 4+ H NEGATIVE Urine RBC 2-5 H /HPF Urine WBC RARE /HPF Urine Crystals NONE /LPF Urine Bacteria NEGATIVE /HPF Urine Casts NONE /LPF Urine Mucus SMALL H /LPF Urine Culture Indicated NO White Blood Count 16.3 H 4.3-11.0 10^3/uL Red Blood Count 5.61 4.35-5.85 10^6/uL Hemoglobin 17.1 13.3-17.7 G/DL Hematocrit 48 40-54 % Mean Corpuscular Volume 85 80-99 FL Mean Corpuscular Hemoglobin 31 25-34 PG Mean Corpuscular Hemoglobin Concent 36 32-36 G/DL Red Cell Distribution Width 13.1 10.0-14.5 % Platelet Count 162 130-400 10^3/uL Mean Platelet Volume 11.3 H 7.4-10.4 FL Neutrophils (%) (Auto) 80 H 42-75 % Lymphocytes (%) (Auto) 10 L 12-44 % Monocytes (%) (Auto) 9 0-12 % Eosinophils (%) (Auto) 1 0-10 % Basophils (%) (Auto) 0 0-10 % Neutrophils # (Auto) 13.1 H 1.8-7.8 X 10^3 Lymphocytes # (Auto) 1.7 1.0-4.0 X 10^3 Monocytes # (Auto) 1.4 H 0.0-1.0 X 10^3 Eosinophils # (Auto) 0.1 0.0-0.3 10^3/uL Basophils # (Auto) 0.0 0.0-0.1 10^3/uL Neutrophils % (Manual) 73 % Lymphocytes % (Manual) 31 % Monocytes % (Manual) 5 % Eosinophils % (Manual) 1 % Basophils % (Manual) 0 % Band Neutrophils 0 % Blood Morphology Comment NORMAL Sodium Level 136 135-145 MMOL/L Potassium Level 4.5 3.6-5.0 MMOL/L Chloride Level 104 98-107 MMOL/L Carbon Dioxide Level 20 L 21-32 MMOL/L Anion Gap 12 5-14 MMOL/L Blood Urea Nitrogen 15 7-18 MG/DL Creatinine 1.68 H 0.60-1.30 MG/DL Estimat Glomerular Filtration Rate 42 BUN/Creatinine Ratio 9 Glucose Level 105 70-105 MG/DL Calcium Level 9.5 8.5-10.1 MG/DL Total Bilirubin 1.5 H 0.1-1.0 MG/DL Aspartate Amino Transf (AST/SGOT) 25 5-34 U/L Alanine Aminotransferase (ALT/SGPT) 18 0-55 U/L Alkaline Phosphatase 76 40-136 U/L Total Protein 7.5 6.4-8.2 GM/DL Albumin 4.6 H 3.2-4.5 GM/DL My Orders Orders - MATT MOSQUEDA [employer] Cbc With Automated Diff (07/20/17 18:55) Comprehensive Metabolic Panel (07/20/17 18:55) Saline Lock/Iv-Start (07/20/17 18:55) Ua Culture If Indicated (07/20/17 18:55) Ns Iv 1000 Ml (Sodium Chloride 0.9%) (07/20/17 19:00) Ondansetron Injection (Zofran Injectio (07/20/17 19:00) Ondansetron Injection (Zofran Injectio (07/20/17 19:15) Fentanyl Injection (Sublimaze Injection (07/20/17 19:15) Ct Abd/Pelvis Wo(Kidney Stone) (07/20/17 19:18) Manual Differential (07/20/17 19:07) Ns Iv 1000 Ml (Sodium Chloride 0.9%) (07/20/17 19:45) Ceftriaxone Injection (Rocephin Injectio (07/20/17 20:00) Ketorolac Injection (Toradol Injection) (07/20/17 19:59) Rx-Ondansetron Po (Rx-Zofran Po) (07/20/17 20:06) Medications Given in ED Current Medications Medications Dose Ordered Sig/Yelena Route Start Time Stop Time Status Last Admin Dose Admin Ceftriaxone Sodium 1000 mg/ Sodium Chloride 100 ml @ 200 mls/hr ONCE ONCE IV 07/20/17 20:00 07/20/17 20:29 DC 07/20/17 20:04 200 MLS/HR Fentanyl Citrate 50 mcg ONCE ONCE IVP 07/20/17 19:15 07/20/17 19:16 DC 07/20/17 19:27 50 MCG Ondansetron HCl 8 mg ONCE ONCE IVP 07/20/17 19:15 07/20/17 19:16 DC 07/20/17 19:27 8 MG Vital Signs/I&O 07/20/17 19:00 Temp 99.2 Pulse 79 Resp 20 B/P (MAP) 142/91 (108) Pulse Ox 97 O2 Delivery Room Air Capillary Refill : Diagnostic Imaging Diagonstic Imaging: CT Comments NAME: BART VIRK [facility] REC#: [id number] PT STATUS: REG ER : 1955 PHYSICIAN: MATT MOSQUEDA [employer] MANAGER ADMIT DATE: 07/20/17/ER Draft Date of Exam:07/20/17 CT ABD/PELVIS WO(KIDNEY STONE) PROCEDURE: CT urinary tract, rule out kidney stone. TECHNIQUE: Multiple contiguous axial images were obtained through the abdomen and pelvis without the use of intravenous contrast. INDICATION: Right flank pain Lung bases are clear. Liver appears normal. Gallbladder surgically absent. Pancreas is normal. Spleen is unremarkable. Adrenal glands are normal. Left kidney is normal. There is hydronephrosis of the right kidney. There is a 2 mm calculus at the right ureterovesical junction causing obstruction. Urinary bladder is unremarkable. Intestines are unremarkable. There is no intraperitoneal free air or free fluid. IMPRESSION: A 2 mm obstructing calculus distal right ureter at the ureterovesical junction. Dictated on workstation # [id number] Dict: 07/20/171945 Trans: 07/20/171948 [facility], [facility] [id number] Interpreted by: KADE VAN MD Electronically signed by: Departure Communication (Admissions) He has his bottles of medication with him. He has about 10 Flomax left in his bottle, he has a half a bottle of hydrocodone 7. 5/06/30 left, 2 of his Percocet left, I will write him for Zofran ODT currently he only has the Zofran pills that must be swallowed, I will write him for antibiotics as well. Impression Primary Impression: Ureterolithiasis Additional Impression: Parkinson disease Disposition: HOME, SELF-CARE Condition: Improved Departure-Patient Inst. Decision time for Depature: 19:54 Referrals: CORWIN NORRIS MD (PCP) Primary Care Physician Patient Instructions: Kidney Stones in Adults Add. Discharge Instructions: He had a 2 mm stone at the junction of where the ureter meets the bladder on the right. This should pass without much difficulty within the next 2-3 days. Take antibiotics as directed, take the nausea medication as directed.Return to ER for any fevers or chills. Continue the flomax, the pain medication and the antibiotics and nausea medication. For the constipation it would also be puente to take 1-2 capfuls or packets (depending on which type you buy) of Miralax once to twice daily. Dissolve 1-2 capfuls or packets into an 8 ounce glass of either water or gatorade. This will help with the constipation brought on by the pain medication use. You can get Miralax at any [facility] or [employer] over the counter. Scripts Sulfamethoxazole/Trimethoprim (Bactrim Ds Tablet) 1 Each Tablet 1 EACH PO BID, #10 TAB Prov: MATT MOSQUEDA APRN 07/20/17 Ondansetron (Ondansetron Odt) 8 Mg Tab.rapdis 8 MG PO Q6H, #10 TAB Prov: MATT MOSQUEDA APRN 07/20/17 MATT MOSQUEDA APRN Jul 20, 2017 19:18
[2017-07-20 19:20] LABS: BILIRUBIN,URINE NEGATIVE (NEGATIVE); CLARITY,URINE CLEAR; COLOR,URINE AMBER; GLUCOSE, URINE (UA) NEGATIVE (NEGATIVE); KETONES,URINE 1+ (NEGATIVE); LEUKOCYTE ESTERASE ,URINE 1+ (NEGATIVE); NITRITE,URINE NEGATIVE (NEGATIVE); PH,URINE 5 (5-9); PROTEIN,URINE 2+ (NEGATIVE); UROBILINOGEN,URINE 1 MG/DL (NORMAL)
[2017-07-20] MEDS: KETOROLAC 30 MG/ML VIAL ONE ×2 (19:27→21:00)
[2017-07-20 19:31] LABS: BACTERIA,URINE NEGATIVE /HPF; WBC,URINE RARE /HPF
[2017-07-20 19:39] LABS: ALBUMIN 4.6 GM/DL (3.2-4.5); BILIRUBIN,TOTAL 1.5 MG/DL (0.1-1.0); CALCIUM 9.5 MG/DL (8.5-10.1); CREATININE SERUM 1.68 MG/DL (0.60-1.30); POTASSIUM 4.5 MMOL/L (3.6-5.0); TOTAL PROTEIN 7.5 GM/DL (6.4-8.2)
--- NOTE | 2017-07-20 19:50 | Diagnostic Imaging Report ---
PROCEDURE: CT urinary tract, rule out kidney stone. TECHNIQUE: Multiple contiguous axial images were obtained through the abdomen and pelvis without the use of intravenous contrast. INDICATION: Right flank pain Lung bases are clear. Liver appears normal. Gallbladder surgically absent. Pancreas is normal. Spleen is unremarkable. Adrenal glands are normal. Left kidney is normal. There is hydronephrosis of the right kidney. There is a 2 mm calculus at the right ureterovesical junction causing obstruction. Urinary bladder is unremarkable. Intestines are unremarkable. There is no intraperitoneal free air or free fluid. IMPRESSION: A 2 mm obstructing calculus distal right ureter at the ureterovesical junction. Dictated by: Dictated on workstation # [id number]
[2017-07-20] MEDS ORDERED: LANTANOPROST (19:51)
[2017-07-20] MEDS ORDERED: HYDR-34 PO (19:51)
[2017-07-20] MEDS ORDERED: SULF1TAB35 PO (19:56)
[2017-07-20] MEDS ORDERED: ONDA8TAB13 PO (19:56)
[2017-07-20] MEDS ORDERED: cefTRIAXone INJECTION 1,000 MG in NS (IVPB) 100 ML IV ONE (20:00)
[2017-07-20] MEDS ORDERED: RX-ONDANSETRON 4 MG ODT (ZOFRAN) PPK #4 PO STA (20:06)
[2017-07-20 20:12] LABS: BAND NEUTROPHILS 0 %; BASOPHILS % (MANUAL) 0 %; EOSINOPHILS % (MANUAL) 1 %; LYMPHOCYTES % (MANUAL) 31 %; MONOCYTES % (MANUAL) 5 %; NEUTROPHILS % (MANUAL) 73 %; RBC MORPH NORMAL
[2017-07-20 20:53] VITALS: BP 142/91
[2017-07-20] MEDS ORDERED: RX-OXYCODONE/APAP 5-325 MG #4 TAB PK PO ONE (20:56)
[2017-07-20] MEDS ORDERED: RX-OXYCODONE/APAP 5-325 MG #4 TAB PK PO PRN (21:00)
[2017-07-20] MEDS ORDERED: KETOROLAC 30 MG/ML VIAL IVP ONE (21:15)
--- OUTSIDE RECORDS SUMMARY | 2017-07-21 10:35 | XMS REPORT | Continuity of Care Document ---
Author Author [facility] Organization [facility] Address Unknown Phone Unavailable Allergies Active Description Code Type Severity Reaction Onset Reported/Identified Relationship to Patient Clinical Status Yes No Known Drug Allergies [id number] Drug Allergy Unknown N/A 12/23/2016 Medications There is no data. Problems Date Dx Coded Attending Type Code Diagnosis Diagnosed By 12/25/2016 BART SHAFER MD Ot A41.9 SEPSIS, UNSPECIFIED ORGANISM 12/25/2016 BART SHAFER MD Ot E87.6 HYPOKALEMIA 12/25/2016 BART SHAFER MD Ot F17.210 NICOTINE DEPENDENCE, CIGARETTES, UNCOMPL 12/25/2016 BART SHAFER MD Ot G20 PARKINSON'S DISEASE 12/25/2016 BART SHAFER MD Ot K40.90 UNIL INGUINAL HERNIA, W/O OBST OR GANGR, 12/25/2016 BART SHAFER MD Ot N20.1 CALCULUS OF URETER 12/25/2016 BART SHAFER MD Ot R31.29 OTHER MICROSCOPIC HEMATURIA 12/25/2016 BART SHAFER MD Ot Z93.59 OTHER CYSTOSTOMY STATUS 12/27/2016 DELOLMAN DO, JANEL B Ot N20.0 CALCULUS OF KIDNEY 12/27/2016 DELOLMAN DO, JANEL B Ot N39.0 URINARY TRACT INFECTION, SITE NOT SPECIF 01/09/2017 DELMAN DO, JANEL B Ot N20.0 CALCULUS OF KIDNEY 01/09/2017 DELMAN DO, JANEL B Ot N39.0 URINARY TRACT INFECTION, SITE NOT SPECIF Procedures There is no data. Results Test Result Range Complete blood count (CBC) with automated white blood cell (WBC) differential - 12/23/16 21:11 Blood leukocytes automated count (number/volume) 16.0 10*3/uL 4.3-11.0 Blood erythrocytes automated count (number/volume) 5.14 10*6/uL 4.35-5.85 Venous blood hemoglobin measurement (mass/volume) 15.3 g/dL 13.3-17.7 Blood hematocrit (volume fraction) 42 % 40-54 Automated erythrocyte mean corpuscular volume 82 [foz_us] 80-99 Automated erythrocyte mean corpuscular hemoglobin (mass per erythrocyte) 30 pg 25-34 Automated erythrocyte mean corpuscular hemoglobin concentration measurement ( mass/volume) 37 g/dL 32-36 Automated erythrocyte distribution width ratio 13.3 % 10.0-14.5 Automated blood platelet count (count/volume) 217 10*3/uL 130-400 Automated blood platelet mean volume measurement 11.7 [foz_us] 7.4-10.4 Automated blood neutrophils/100 leukocytes 79 % 42-75 Automated blood lymphocytes/100 leukocytes 12 % 12-44 Blood monocytes/100 leukocytes 7 % 0-12 Automated blood eosinophils/100 leukocytes 1 % 0-10 Automated blood basophils/100 leukocytes 0 % 0-10 Blood neutrophils automated count (number/volume) 12.6 10*3 1.8-7.8 Blood lymphocytes automated count (number/volume) 2.0 10*3 1.0-4.0 Blood monocytes automated count (number/volume) 1.2 10*3 0.0-1.0 Automated eosinophil count 0.2 10*3/uL 0.0-0.3 Automated blood basophil count (count/volume) 0.1 10*3/uL 0.0-0.1 Comprehensive metabolic panel - 12/23/16 21:11 Serum or plasma sodium measurement (moles/volume) 136 mmol/L 135-145 Serum or plasma potassium measurement (moles/volume) 3.4 mmol/L 3.6-5.0 Serum or plasma chloride measurement (moles/volume) 106 mmol/L 98-107 Carbon dioxide 16 mmol/L 21-32 Serum or plasma anion gap determination (moles/volume) 14 mmol/L 5-14 Serum or plasma urea nitrogen measurement (mass/volume) 10 mg/dL 7-18 Serum or plasma creatinine measurement (mass/volume) 1.26 mg/dL 0.60-1.30 Serum or plasma urea nitrogen/creatinine mass ratio 8 NRG Serum or plasma creatinine measurement with calculation of estimated glomerular filtration rate 59 NRG Serum or plasma glucose measurement (mass/volume) 100 mg/dL 70-105 Serum or plasma calcium measurement (mass/volume) 9.3 mg/dL 8.5-10.1 Serum or plasma total bilirubin measurement (mass/volume) 1.0 mg/dL 0.1-1.0 Serum or plasma alkaline phosphatase measurement (enzymatic activity/volume) 120 U/L 40-136 Serum or plasma aspartate aminotransferase measurement (enzymatic activity/ volume) 32 U/L 5-34 Serum or plasma alanine aminotransferase measurement (enzymatic activity/volume ) 71 U/L 0-55 Serum or plasma protein measurement (mass/volume) 7.2 g/dL 6.4-8.2 Serum or plasma albumin measurement (mass/volume) 4.5 g/dL 3.2-4.5 Magnesium - 12/23/16 21:11 Magnesium 2.3 mg/dL 1.8-2.4 Lipase - 12/23/16 21:11 Lipase 45 U/L 8-78 Blood manual differential performed detection - 12/23/16 21:11 Blood monocytes/100 leukocytes 1 % NRG Manual blood segmented neutrophils/100 leukocytes 67 % NRG Blood band neutrophils/100 leukocytes 0 % NRG Manual blood lymphocytes/100 leukocytes 29 % NRG Manual eosinophils/100 leukocytes in nose 3 % NRG Manual blood basophils/100 leukocytes 0 % NRG Blood erythrocyte morphology finding identification NORMAL NRG Blood lactic acid measurement (moles/volume) - 12/23/16 22:38 Blood lactic acid measurement (moles/volume) 2.08 mmol/L 0.50-2.00 Complete urinalysis with reflex to culture - 12/23/16 22:53 Urine color determination YELLOW NRG Urine clarity determination CLEAR NRG Urine pH measurement by test strip 5 5-9 Specific gravity of urine by test strip 1.010 1.016- 1.022 Urine protein assay by test strip, semi-quantitative 1+ NEGATIVE Urine glucose detection by automated test strip NEGATIVE NEGATIVE Erythrocytes detection in urine sediment by light microscopy 5+ NEGATIVE Urine ketones detection by automated test strip NEGATIVE NEGATIVE Urine nitrite detection by test strip NEGATIVE NEGATIVE Urine total bilirubin detection by test strip NEGATIVE NEGATIVE Urine urobilinogen measurement by automated test strip (mass/volume) NORMAL NORMAL Urine leukocyte esterase detection by dipstick NEGATIVE NEGATIVE Automated urine sediment erythrocyte count by microscopy (number/high power field) [HPF] NRG Automated urine sediment leukocyte count by microscopy (number/high power field ) RARE NRG Bacteria detection in urine sediment by light microscopy NEGATIVE NRG Crystals detection in urine sediment by light microscopy NONE NRG Casts detection in urine sediment by light microscopy NONE NRG Mucus detection in urine sediment by light microscopy NEGATIVE NRG Complete urinalysis with reflex to culture NO NRG Serum or plasma lactate measurement (moles/volume) - 12/24/16 01:00 Serum or plasma lactate measurement (moles/volume) 1.63 mmol/L 0.50-2.00 Complete blood count (CBC) with automated white blood cell (WBC) differential - 12/24/16 05:45 Blood leukocytes automated count (number/volume) 9.9 10*3/uL 4.3-11.0 Blood erythrocytes automated count (number/volume) 4.78 10*6/uL 4.35-5.85 Venous blood hemoglobin measurement (mass/volume) 14.4 g/dL 13.3-17.7 Blood hematocrit (volume fraction) 40 % 40-54 Automated erythrocyte mean corpuscular volume 83 [foz_us] 80-99 Automated erythrocyte mean corpuscular hemoglobin (mass per erythrocyte) 30 pg 25-34 Automated erythrocyte mean corpuscular hemoglobin concentration measurement ( mass/volume) 36 g/dL 32-36 Automated erythrocyte distribution width ratio 13.4 % 10.0-14.5 Automated blood platelet count (count/volume) 180 10*3/uL 130-400 Automated blood platelet mean volume measurement 11.5 [foz_us] 7.4-10.4 Automated blood neutrophils/100 leukocytes 69 % 42-75 Automated blood lymphocytes/100 leukocytes 20 % 12-44 Blood monocytes/100 leukocytes 9 % 0-12 Automated blood eosinophils/100 leukocytes 2 % 0-10 Automated blood basophils/100 leukocytes 0 % 0-10 Blood neutrophils automated count (number/volume) 6.8 10*3 1.8-7.8 Blood lymphocytes automated count (number/volume) 2.0 10*3 1.0-4.0 Blood monocytes automated count (number/volume) 0.9 10*3 0.0-1.0 Automated eosinophil count 0.2 10*3/uL 0.0-0.3 Automated blood basophil count (count/volume) 0.0 10*3/uL 0.0-0.1 Whole blood basic metabolic panel - 12/24/16 05:45 Serum or plasma sodium measurement (moles/volume) 138 mmol/L 135-145 Serum or plasma potassium measurement (moles/volume) 3.3 mmol/L 3.6-5.0 Serum or plasma chloride measurement (moles/volume) 109 mmol/L 98-107 Carbon dioxide 20 mmol/L 21-32 Serum or plasma anion gap determination (moles/volume) 9 mmol/L 5-14 Serum or plasma urea nitrogen measurement (mass/volume) 10 mg/dL 7-18 Serum or plasma creatinine measurement (mass/volume) 1.10 mg/dL 0.60-1.30 Serum or plasma urea nitrogen/creatinine mass ratio 9 NRG Serum or plasma creatinine measurement with calculation of estimated glomerular filtration rate > NRG Serum or plasma glucose measurement (mass/volume) 88 mg/dL 70-105 Serum or plasma calcium measurement (mass/volume) 8.4 mg/dL 8.5-10.1 Bacterial blood culture - 12/24/16 10:10 Bacterial blood culture NG NRG Bacterial blood culture - 12/24/16 10:23 Bacterial blood culture NG NRG Gram stain microscopy - 12/24/16 13:20 GRAM STAIN RESULT FEW WBC'S, NO BACTERIA OBSERVED NRG Bacterial body fluid culture - 12/24/16 13:20 FREE TEXT EXTERNAL SENSITIVITY REPORTED 12/27/16 12:35 NRG QUANTITY OF GROWTH Scant Growth NR Bacterial body fluid culture [id number] [facility] Bacterial susceptibility panel - 12/24/16 13:20 Trimethoprim/sulfamethoxazole susceptibility test by minimum inhibitoryconcentration <= NR Bacterial susceptibility panel - 12/24/16 13:20 Oxacillin susceptibility test by minimum inhibitory concentration > = NRG Gentamicin susceptibility test by minimum inhibitory concentration 8 NRG Clindamycin susceptibility test by minimum inhibitory concentration R NRG Erythromycin susceptibility test by minimum inhibitory concentration >= NRG Trimethoprim/sulfamethoxazole susceptibility test by minimum inhibitoryconcentration 80 NRG Vancomycin susceptibility test by minimum inhibitory concentration 1 NRG Levofloxacin susceptibility test by minimum inhibitory concentration >= NRG Rifampin susceptibility test by minimum inhibitory concentration <= NRG Tetracycline susceptibility test by minimum inhibitory concentration >= NRG Ciprofloxacin susceptibility test by minimum inhibitory concentration R [facility] Bacterial susceptibility panel - 12/24/16 13:20 Gentamicin susceptibility test by minimum inhibitory concentration < = NRG Trimethoprim/sulfamethoxazole susceptibility test by minimum inhibitoryconcentration <= NRG Ampicillin susceptibility test by minimum inhibitory concentration > = NRG Tobramycin susceptibility test by minimum inhibitory concentration < = NRG Cefazolin susceptibility test by minimum inhibitory concentration > = NRG Ceftriaxone susceptibility test by minimum inhibitory concentration <= NRG Ampicillin/sulbactam susceptibility test by minimum inhibitory concentration >= NRG Piperacillin/tazobactam susceptibility test by minimum inhibitory concentration 8 NRG Ciprofloxacin susceptibility test by minimum inhibitory concentration 1 NRG Aztreonam susceptibility test by minimum inhibitory concentration < = NRG Complete blood count (CBC) with automated white blood cell (WBC) differential - 12/25/16 05:54 Blood leukocytes automated count (number/volume) 7.9 10*3/uL 4.3-11.0 Blood erythrocytes automated count (number/volume) 4.47 10*6/uL 4.35-5.85 Venous blood hemoglobin measurement (mass/volume) 13.4 g/dL 13.3-17.7 Blood hematocrit (volume fraction) 38 % 40-54 Automated erythrocyte mean corpuscular volume 84 [foz_us] 80-99 Automated erythrocyte mean corpuscular hemoglobin (mass per erythrocyte) 30 pg 25-34 Automated erythrocyte mean corpuscular hemoglobin concentration measurement ( mass/volume) 36 g/dL 32-36 Automated erythrocyte distribution width ratio 13.4 % 10.0-14.5 Automated blood platelet count (count/volume) 171 10*3/uL 130-400 Automated blood platelet mean volume measurement 11.6 [foz_us] 7.4-10.4 Automated blood neutrophils/100 leukocytes 55 % 42-75 Automated blood lymphocytes/100 leukocytes 33 % 12-44 Blood monocytes/100 leukocytes 8 % 0-12 Automated blood eosinophils/100 leukocytes 4 % 0-10 Automated blood basophils/100 leukocytes 1 % 0-10 Blood neutrophils automated count (number/volume) 4.3 10*3 1.8-7.8 Blood lymphocytes automated count (number/volume) 2.6 10*3 1.0-4.0 Blood monocytes automated count (number/volume) 0.7 10*3 0.0-1.0 Automated eosinophil count 0.3 10*3/uL 0.0-0.3 Automated blood basophil count (count/volume) 0.0 10*3/uL 0.0-0.1 Whole blood basic metabolic panel - 12/25/16 05:54 Serum or plasma sodium measurement (moles/volume) 138 mmol/L 135-145 Serum or plasma potassium measurement (moles/volume) 3.4 mmol/L 3.6-5.0 Serum or plasma chloride measurement (moles/volume) 108 mmol/L 98-107 Carbon dioxide 20 mmol/L 21-32 Serum or plasma anion gap determination (moles/volume) 10 mmol/L 5-14 Serum or plasma urea nitrogen measurement (mass/volume) 9 mg/dL 7-18 Serum or plasma creatinine measurement (mass/volume) 0.92 mg/dL 0.60-1.30 Serum or plasma urea nitrogen/creatinine mass ratio 10 NRG Serum or plasma creatinine measurement with calculation of estimated glomerular filtration rate > NRG Serum or plasma glucose measurement (mass/volume) 101 mg/dL 70-105 Serum or plasma calcium measurement (mass/volume) 8.4 mg/dL 8.5-10.1 Measurement of weight of kidney stone - 12/25/16 11:32 Measurement of weight of kidney stone 10 mg NRG Kidney stone composition determination SEE FOOTNOTE NRG Count of number of calculi 1 NRG Size of stone 1 to 4 NRG Encounters ACCT No. Visit Date/Time Discharge Status Pt. Type Provider Facility Loc./Unit Complaint [id number] 12/25/2016 15:30:00 12/25/2016 23:59:59 CLS Outpatient JANEL JACKSON DO [facility] LAB KIDNEY STONE, UTI [id number] 12/24/2016 01:35:00 12/25/2016 10:00:00 DIS Inpatient SONI BENSON, BART Ewing [facility] 4TH SEPSIS, UTI, KIDNEY STONE , ILEUS, CYSTOSTOMY TUBE [id number] 09/25/2013 11:17:00 09/25/2013 23:59:59 CLS Outpatient [id number] 03/17/2014 16:39:53 03/17/2014 23:59:59 CLS Outpatient Kimberly Krishnamurthy
== END 2017-07-20 20:53 | disposition home or self-care (01) ==
LOC: EDUNIT# 18:39 → ER 18:40
DX: N20.1 Calculus of ureter (principal); G20 Parkinson's disease; K21.9 Gastro-esophageal reflux disease without esophagitis; Z87.19 Personal history of other diseases of the digestive system; Z87.438 Personal history of other diseases of male genital organs
CPT/HCPCS: 36415; 74176; 80053; 81000; 85007; 85027; 96361; 96365; 96375

== ENCOUNTER → 2017-07-22 | Outpatient (CLI) | payer BC ==
[~2017-07-22] MED LIST changes: +CIPR-225 PO; +HYDR-34 PO; +HYDR-3870 PO; +LANTANOPROST; +ONDA8TAB13 PO; +PHEN-640 PO; +SULF1TAB35 PO; +TAMS0.4C98 PO
--- NOTE | 2017-07-22 15:16 | Diagnostic Imaging Report ---
INDICATION: Right-sided flank pain. TIME OF EXAMINATION: 03:12 p.m. COMPARISON: Comparison is made with CT study from 07/20/2017. FINDINGS: Previously noted tiny calculus at the UVJ on the right is not appreciated by plain film and may have passed. No definite radiopaque urinary tract calculi are detected. The bowel gas pattern is unremarkable. There are surgical clips in the gallbladder fossa. IMPRESSION: Previously noted distal right ureteric calculus noted on CT is not appreciated by plain film. Dictated by: Dictated on workstation # [id number]
== END ==
LOC: RAD 14:36
PROVIDERS: ATTEND Urology
DX: N20.1 Calculus of ureter (principal)
CPT/HCPCS: 74018

== ENCOUNTER 2017-07-23 06:59 | Day surgery (SDC) | payer BC ==
[~2017-07-23] VITALS: Ht 180.3 cm; Wt 109.0 kg
[~2017-07-23 06:59] MED LIST changes: -CIPR-225 PO; -HYDR-3870 PO; -PHEN-640 PO; -TAMS0.4C98 PO
--- OUTSIDE RECORDS SUMMARY | 2017-07-23 07:03 | XMS REPORT | Continuity of Care Document ---
Author Author [facility] Organization [facility] Address Unknown Phone Unavailable Allergies Active Description Code Type Severity Reaction Onset Reported/Identified Relationship to Patient Clinical Status Yes No Known Drug Allergies [id number] Drug Allergy Unknown N/A 12/23/2016 Medications There [...] Scant Growth NR Bacterial body fluid culture [id number] [facility] Bacterial susceptibility panel - 12/24/16 13:20 Trimethoprim/sulfamethoxazole [...] susceptibility test by minimum inhibitory concentration R [facility] Bacterial susceptibility panel - 12/24/16 13:20 Gentamicin [...] Status Pt. Type Provider Facility Loc./Unit Complaint [id number] 12/25/2016 15:30:00 12/25/2016 23:59:59 CLS Outpatient JANEL JACKSON DO [facility] LAB KIDNEY STONE, UTI [id number] 12/24/2016 01:35:00 12/25/2016 10:00:00 DIS Inpatient SONI BENSON, BART Ewing [facility] 4TH SEPSIS, UTI, KIDNEY STONE , ILEUS, CYSTOSTOMY TUBE [id number] 09/25/2013 11:17:00 09/25/2013 23:59:59 CLS Outpatient [id number] 03/17/2014 16:39:53 03/17/2014 23:59:59 CLS Outpatient Kimberly Krishnamurthy
[2017-07-23 07:10] VITALS: BP 122/77
--- NOTE | 2017-07-23 07:14 | Progress Note-Pre Operative ---
Pre-Operative Progress Note H&P Reviewed The H&P was reviewed, patient examined and no changes noted. Date Seen by Provider: Jul 23, 2017 Time Seen by Provider: 07:14 Date H&P Reviewed: Jul 23, 2017 Time H&P Reviewed: 07:14 Pre-Operative Diagnosis: RT DISTAL URETERAL STONE YANA BASHIR MD Jul 23, 2017 7:14 am
[2017-07-23] MEDS ORDERED: CATHETER FLUSH 10 ML SYR IV PRN (07:45)
[2017-07-23] MEDS ORDERED: cefTRIAXone 1 GM/NS 100 ML IVPB IV ONE ×2 (07:45)
[2017-07-23] MEDS ORDERED: LACTATED RINGERS 1,000 ML IV PRN (07:58)
[2017-07-23] MEDS ORDERED: ONDANSETRON 4 MG/2 ML (SDV) Z0FRAN ONE (08:39)
[2017-07-23] MEDS ORDERED: ONDANSETRON 4 MG/2 ML (SDV) Z0FRAN IV ONE (08:45)
[2017-07-23] MEDS ORDERED: FAMOTIDINE 20MG/2ML IV (PEPCID) IV ONE (08:45)
--- NOTE | 2017-07-23 09:05 | Diagnostic Imaging Report ---
INDICATION: Right ureteral stone KUB obtained at 9:03 hours am, and is compared to yesterday. There are surgical clips in right upper quadrant. There is prominent stool in the colon. There are 2 calcifications overlie the lower pelvis, one on each side compatible with phleboliths. The right ureteral stone visualized on the CT study of 07/20/2017 is not appreciated on this study. IMPRESSION: Stable appearance compared to yesterday. There are phleboliths in the pelvis on both sides. The right ureteral stone previously seen on 07/20/[address] study is not apparent on this study. There is prominent stool throughout the colon. There are surgical clips in the right upper quadrant. Dictated by: Dictated on workstation # [id number]
[2017-07-23] MEDS ORDERED: LACTATED RINGERS 0 ML IV ONE (09:13)
[2017-07-23] MEDS ORDERED: fentaNYL INJECTION 100 MCG/2 ML AMP ONE (09:13)
[2017-07-23] MEDS ORDERED: LIDOCAINE PF 2% 5 ML (XYLOCAINE) VIAL ONE (09:13)
[2017-07-23] MEDS ORDERED: ROCURONIUM 10 MG/ML 5 ML SYRINGE IV ONE (09:13)
[2017-07-23] MEDS ORDERED: proPOfol 200 MG/20 ML (DIPRIVAN) VIAL IV ONE ×2 (09:13→09:50)
[2017-07-23] MEDS ORDERED: MIDAZOLAM 2 MG/2 ML (VERSED) VIAL ONE (09:13)
[2017-07-23] MEDS ORDERED: CARB1TAB19 PO (09:45)
[2017-07-23] MEDS ORDERED: NEOSTIGMINE 1 MG/ML 5 ML SYRINGE ONE (10:15)
[2017-07-23] MEDS ORDERED: GLYCOPYRROLATE 0.2 MG/ML (ROBINUL) 2 ML VIAL ONE (10:15)
[2017-07-23] MEDS ORDERED: SEVOFLURANE (ULTANE) 15 ML INHAL SOLN ONE (10:18)
--- NOTE | 2017-07-23 10:26 | Progress Note-Post Operative ---
Post-Operative Progess Note Surgeon (s)/Furnace Mechanic (s) Surgeon YANA BASHIR MD Furnace Mechanic: N/A Pre-Operative Diagnosis RT DISTAL URETERAL STONE Post-Operative Diagnosis SAME Procedure & Operative Findings Date of Procedure 07/23/17 Procedure Performed/Findings RT URETEROSCOPY WITH STONE MANIPULATION, FRAGMENTATION AND INSERTION OF STENT Anesthesia Type GENERAL Estimated Blood Loss Estimated blood loss (mL): N/A Specimens/Packing Specimens Removed N/A Packing: N/A YANA BASHIR MD Jul 23, 2017 10:26 am
--- NOTE | 2017-07-23 10:27 | Discharge Inst-Urology ---
Discharge Inst-Urology Discharge Medications New, Converted, or Re-newed RX: RX on Chart Patient Instructions/Follow Up Plan Please make appointment to been seen in office next weeks for cysto and removal of stent Increase oral fluids for 48 hours and then as needed. Diet and Activity as tolerated. If questions or concerns contact your physician Or seek help at emergency department. YANA BASHIR MD Jul 23, 2017 10:27 am
[2017-07-23] MEDS ORDERED: MEPERIDINE (DEMEROL) INJ 50 MG/ML IVP PRN (10:30)
[2017-07-23] MEDS ORDERED: ONDANSETRON 4 MG/2 ML (SDV) Z0FRAN IVP PRN (10:30)
[2017-07-23] MEDS ORDERED: morphine INJ 10 MG/ML 1ML (SYR OR VIAL) ONE (10:38)
[2017-07-23] MEDS: morphine INJ 10 MG/ML 1ML (SYR OR VIAL) IVP PRN ×2 (10:43→10:47)
[2017-07-23] MEDS: HYDROmorphone 2 MG/ML VIAL (DILAUDID) IVP PRN ×2 (10:58→11:08)
--- NOTE | 2017-07-23 11:28 | Diagnostic Imaging Report ---
INDICATION: Right ureteral stone. TECHNIQUE: Fluoroscopy utilized by Dr. Antonio. Single intraprocedural imaging of the pelvis submitted, 9:14 AM. CORRELATION STUDY: None FINDINGS: Single image over the pelvis demonstrates apparent cystoscope over the midline lower pelvis. Otherwise imaging limited. Fluoroscopy time: 1 minute 43 seconds IMPRESSION: 1. Very limited imaging over the pelvis during cystoscopy. Dictated by: Dictated on workstation # [id number]
[2017-07-23 11:30] VITALS: BP 131/87
[2017-07-23] MEDS ORDERED: PHENAZOPYRIDINE 100 MG (PYRIDIUM) TABLET PO ONE (12:15)
[2017-07-23] MEDS: HYDROcodone/APAP 5 MG/325 MG (LORTAB) TAB PO PRN ×2 (12:18→13:42)
[2017-07-23 12:20] VITALS: BP 136/73
[2017-07-23 13:00] VITALS: BP 132/75
--- NOTE | 2017-07-23 13:47 | Anesthesia-General Post-Op ---
General Patient Condition Mental Status/LOC: Same as Preop Cardiovascular: Satisfactory Nausea/Vomiting: Absent Respiratory: Satisfactory Pain: Controlled Complications: Absent Post Op Complications Complications None Follow Up Care/Instructions Patient Instructions None needed. Anesthesia/Patient Condition Patient Condition Patient was seen after surgery and prior to his discharge to home and he was doing well, no complaints, stable vital signs, no apparent adverse anesthesia problems. IGNACIO ROJAS DO Jul 23, 2017 13:47
--- NOTE | 2017-07-23 13:51 | OPERATIVE REPORT ---
DATE OF SERVICE: 07/23/2017 PREOPERATIVE DIAGNOSIS: Right distal ureteral stone. POSTOPERATIVE DIAGNOSIS: Right distal ureteral stone. OPERATIONS PERFORMED: Right ureteroscopy with stone manipulation fragmentation and insertion of right stent. SURGEON: Jarad Bashir MD. ANESTHESIA: General. COMPLICATIONS: None. DESCRIPTION OF PROCEDURE: Under satisfactory general anesthesia, the patient in lithotomy position, genitalia were prepped and draped in the usual sterile fashion. A 23-[place] cystoscope was introduced into the bladder under vision. The anterior urethra was normal. The prostate was somewhat enlarged with some bladder neck obstruction. The bladder revealed some trabeculations. Ureteric orifices were normal in shape, size, and configuration with clear efflux, sluggish on the right side. Using the foroblique lens, I dilated the right ureteral orifice and intramural portion to accommodate a 6.9-[place] semirigid ureteroscope. I was able to disengage the stone, which was friable and fragmented easily just by mechanical contact with the ureteroscope. I removed the ureteroscope, inserted the cystoscope, passed a ureteral catheter to inject contrast. There was filling of the whole system, good emptying and could not see any filling defect. There was one area suspicious but not persistent. Despite that, I elected to put a stent just in case, so I passed a 6-[place] [address] all the way up to the right renal pelvis. The guidewire was removed and the stent was seen draining nicely proximally fluoroscopically and distally endoscopically. Bladder was evacuated and the cystoscope was removed. The patient tolerated the procedure and anesthesia well and was sent to recovery room in stable condition. Job ID: [id number] DocumentID: [id number] Dictated Date: 07/23/2017 10:30:30 [employer] Date: 07/23/2017 13:50:58 Dictated By: JARAD BASHIR MD
[2017-07-23] MEDS ORDERED: TAMS0.4C98 PO (14:56)
[2017-07-23] MEDS ORDERED: PHEN-640 PO (14:56)
[2017-07-23] MEDS ORDERED: CIPR-225 PO (14:56)
[2017-07-23] MEDS ORDERED: HYDR-3870 PO (14:56)
[2017-07-23 15:23] VITALS: BP 132/75
== END 2017-07-23 15:23 | disposition home or self-care (01) ==
LOC: SDC 06:59
PROVIDERS: ATTEND Urology
DX: N20.1 Calculus of ureter (principal); G20 Parkinson's disease; I95.1 Orthostatic hypotension; F17.290 Nicotine dependence, other tobacco product, uncomplicated; Z79.899 Other long term (current) drug therapy
CPT/HCPCS: 74018; 87081

== ENCOUNTER 2017-07-31 15:29 | Outpatient (RCR) | payer BC ==
[~2017-07-31 15:29] MED LIST changes: +CIPR-225 PO; +HYDR-3870 PO; +PHEN-640 PO; +TAMS0.4C98 PO
[2017-07-31 16:17] LABS: PHOSPHORUS 3.2 MG/DL (2.3-4.7); URIC ACID 7.6 MG/DL (2.6-7.2)
== END 2017-10-29 | disposition home or self-care (01) ==
LOC: LAB 15:29 → EDSTATUS 09-19 15:32
PROVIDERS: ATTEND Urology
DX: N20.9 Urinary calculus, unspecified (principal)
CPT/HCPCS: 36415; 82140; 82340; 82507; 82570; 83735; 83945; 83970; 83986; 84100; 84105; 84133; 84300; 84392; 84550; 84560

== ENCOUNTER → 2017-12-11 | Outpatient (CLI) | payer BC ==
[~2017-12-11] MED LIST changes: -ROPI4TAB3 PO; +ROPI4TAB5 PO
--- NOTE | 2017-12-11 09:07 | Diagnostic Imaging Report ---
PROCEDURE: CT abdomen and pelvis without contrast. TECHNIQUE: Multiple contiguous axial images were obtained through the abdomen and pelvis without the use of intravenous contrast. INDICATION: Right flank pain, history of kidney stones. FINDINGS: The previous CT abdomen/pelvis exam of 07/20/2017 noted partial obstruction of right collecting system due to a 2 mm calculus at the uterovesical junction. On this exam that calculus is no longer evident. The right collecting system does not appear to be obstructed. There is no sign of nephrolithiasis or urolithiasis on the right. The left kidney and collecting system are unremarkable. The bladder is only partially filled and consequently not well evaluated. There is no obvious bladder abnormality evident. The prostate gland is mildly enlarged measuring 5.2 cm in maximum transverse diameter. The appendix was not particularly well-visualized, but there are no indirect signs of acute appendicitis. The liver, spleen, pancreas, adrenals, aorta and inferior vena cava are unremarkable for an acute abnormality. The gallbladder is surgically absent. The stomach is partially filled with fluid and consequently difficult to assess. The lung bases are clear. The bone window show no evidence for fracture or for destructive lesion. IMPRESSION: 1. The obstructive calculus involving the right collecting system seen on the prior exam is no longer evident. There is no evidence for nephrolithiasis or urolithiasis of either kidney at this time. 2. There is no acute abnormality of the abdomen or pelvis noted otherwise. 3. The prostate gland is mildly enlarged. Dictated by: Dictated on workstation # [id number]
== END ==
LOC: RAD 08:14
PROVIDERS: ATTEND Urology
DX: M54.9 Dorsalgia, unspecified (principal); R10.9 Unspecified abdominal pain; N40.0 Benign prostatic hyperplasia without lower urinary tract symptoms; Z87.442 Personal history of urinary calculi
CPT/HCPCS: 74176

== ENCOUNTER 2018-08-30 12:44 | Emergency (ER) | payer BC | END 2018-08-30 13:58 | disposition home or self-care (01) | LOC: ER 12:44 ==

== ENCOUNTER → 2020-07-19 | Outpatient (CLI) | payer BC ==
[~2020-07-19] MED LIST changes: -CETI10TA20 PO; +CETI10TA49 PO; +ONDA-105 PO; -ONDA4TAB10 PO; -TAMS0.4C98 PO; +TMSL.4C PO
--- NOTE | 2020-07-19 12:58 | Diagnostic Imaging Report ---
EXAMINATION: CT Abdomen Pelvis without contrast. TECHNIQUE: Multiple contiguous axial images were obtained through the abdomen and pelvis without the use of intravenous contrast. All CT scans use one or more of the following dose optimizing techniques: automated exposure control, MA and/or KvP adjustment based on a patient size and exam type, or iterative reconstruction. HISTORY: History of prostate cancer. COMPARISON: CT abdomen and pelvis 12/11/2017 FINDINGS: Lung bases: Stable 0.2 cm left lower lobe pulmonary nodule. Lung bases otherwise clear. Solid organs: The liver is normal. Multiple layering hyperdense stones within the gallbladder. There is no biliary ductal dilation. Pancreas is normal. Spleen is normal. Adrenal glands are normal. There is a 0.2 cm nonobstructing left renal calculus. No hydronephrosis. Bowel: The stomach and small bowel are normal without obstruction. The colon and appendix are normal. Peritoneum: There is no intraperitoneal free fluid or free air. No suspicious lymphadenopathy. Vasculature: Normal without aneurysm. Musculoskeletal: Stable tiny sclerotic focus within the left pubic ramus. There is a new subcentimeter sclerotic focus within the posterior left acetabulum stable sclerotic focus within the T11 vertebral body. Degenerative changes of the spine without acute compression fracture. Pelvis: The prostate gland is enlarged. The urinary bladder is normal. IMPRESSION: 1. There is a new sclerotic focus of the posterior left acetabulum. Consider further evaluation with nuclear medicine bone scan. 2. Additional sclerotic foci within the T11 vertebral body and left pubic ramus are unchanged from prior exams and represent bone islands. These can also be evaluated on the bone scan. 3. No other suspicious findings of metastatic disease within the abdomen or pelvis. 4. A nonobstructing 0.2 cm left renal calculus without hydronephrosis. 5. Stable 0.2 cm left lower lobe pulmonary nodule. Dictated by: Dictated on workstation # [id number]
--- NOTE | 2020-07-19 16:23 | Diagnostic Imaging Report ---
INDICATION: Newly diagnosed prostate carcinoma. TECHNIQUE: The patient was administered 25.1 mCi of technetium 99m MDP intravenously and whole-body imaging was performed after a 3 hour delay. FINDINGS: There is normal uptake of activity by the axial and appendicular skeleton. There is uptake by the kidneys with excretion into the urinary bladder. No suspicious foci are seen to suggest osseous metastatic disease. IMPRESSION: No scintigraphic evidence of osseous metastatic disease. Dictated by: Dictated on workstation # [id number]
== END ==
LOC: CARD 11:51
PROVIDERS: ATTEND Urology
DX: C61 Malignant neoplasm of prostate (principal); N20.0 Calculus of kidney; R91.1 Solitary pulmonary nodule
CPT/HCPCS: 74176; 78306; A9503

== ENCOUNTER 2020-08-24 10:59 | Outpatient (RCR) | payer BC ==
[~2020-08-24 10:59] MED LIST changes: -SULF1TAB35 PO; +SULF1TAB38 PO
== END 2020-11-22 | disposition home or self-care (01) ==
LOC: ONC 10:59
PROVIDERS: ATTEND Radiology Radiation Oncology
DX: C61 Malignant neoplasm of prostate (principal); K21.9 Gastro-esophageal reflux disease without esophagitis; G20 Parkinson's disease; F17.290 Nicotine dependence, other tobacco product, uncomplicated; Z79.899 Other long term (current) drug therapy; Z80.42 Family history of malignant neoplasm of prostate
CPT/HCPCS: 99204

== ENCOUNTER 2021-04-13 05:29 | Outpatient (RCR) | payer BC ==
[~2021-04-13] VITALS: Ht 180.3 cm; Wt 114.8 kg
[~2021-04-13 05:29] MED LIST changes: -TADA5TAB3 PO; +TADA5TAB4 PO; +TIMO5DRO27 OP
== END 2021-04-13 08:27 | disposition home or self-care (01) ==
LOC: PREOP 05:29
PROVIDERS: ATTEND Surgery
DX: Z01.812 Encounter for preprocedural laboratory examination (principal); Z20.822 Contact with and (suspected) exposure to COVID-19
CPT/HCPCS: 87635

== ENCOUNTER 2021-04-17 09:30 | Day surgery (SDC) | payer BC ==
[~2021-04-17] VITALS: Ht 181.6 cm; Wt 114.9 kg
[2021-04-17] VITALS (7 sets, daily range): BP systolic 103–137; BP diastolic 65–84
[2021-04-17] MEDS ORDERED: LACTATED RINGERS 1,000 ML IV STA (09:31)
--- OUTSIDE RECORDS SUMMARY | 2021-04-17 09:33 | XMS REPORT | Clinical Summary ---
Author Author [facility] Organization [facility] Address Unknown Phone Unavailable Care Team Providers Care Crisis Counselor Name Role Phone Go Zamarripa MD Unavailable Stanley Sy PhD Unavailable Daria Hoang Unavailable Unavailable Mega Kim MD PCP Jarad Antonio MD Unavailable Source Comments Some departments are not documenting in the electronic medical record. If you d o not see the information that you expected, contact Release of Information in [facility] Health Information Management department at [phone] for further assistan ce in locating additional records.[facility] Allergies Comments Active Allergy Reactions Severity Noted Date Pt feels like he is vibrating on the inside Guaifenesin SEE COMMENTS Low 09/18/2016 Latex RASH Medium 09/21/2014 Medications End Date Status Medication Sig Dispensed Refills Start Date Active nortriptyline (PAMELOR) Take 10 mg by 0 10 mg capsule mouth at bedtime daily. Active IBUPROFEN (ADVIL PO) Take by 0 mouth as Needed. Active FLUTICASONE PROPIONATE Apply into 0 (FLONASE NA) nose as directed as Needed. Active LORATADINE PO Take by 0 mouth. Active PSEUDOEPHEDRINE HCL Take by 0 (SUDAFED PO) mouth. Active rOPINIRole (REQUIP) 4 mg Take 4 mg by 0 tablet mouth four times daily. Active carbidopa/levodopa Take 1 Tab by 0 (SINEMET) 25/100 mg mouth three tablet times daily. Active tadalafil(+) (CIALIS) 5 Take 5 mg by 0 mg tablet mouth as Needed for Erectile dysfunction. Active cetirizine (ZYRTEC) 10 mg Take 10 mg by 0 tablet mouth every morning. Active aspirin 325 mg tablet Take 325 mg 0 by mouth daily. Take with food. Active hyoscyamine SR (LEVBID; Take 0.375 mg 0 OSCIMIN SR) 0.375 mg by mouth tablet twice daily as needed. Active trimethoprim/sulfamethoxa Take by 0 zole (BACTRIM SS) 80/400 mouth at mg tablet bedtime as needed. Patient is instructed to take (1/2) a tablet Active MULTIVIT WITH Take by 0 MINERALS/LUTEIN mouth daily. (MULTIVITAMIN 50 PLUS PO) Active latanoprost (XALATAN) Apply 1 drop 0 08/02/19 2 0.005 % ophthalmic to both eyes 1 solution at bedtime daily. Active allopurinoL (ZYLOPRIM) Take 100 mg 0 02 100 mg tablet by mouth 1 daily. Active timoloL maleate Apply 1 drop 0 (TIMOPTIC) 0.5 % to both eyes 1 ophthalmic drops daily. Active Problems Problem Noted Date Adjustment disorder 11/03/2014 Stress and adjustment reaction 09/21/2014 Surgical History Surgery Date Site/Laterality Comments APPENDECTOMY 1997 SINUS SURGERY 1999 ABDOMEN SURGERY 1998 Medical History Medical History Date Comments Chest pain Gout Generalized headaches Heart palpitations Heart abnormality Movement disorder Disorganized thinking Altered mental status Memory loss Neuropathy Parkinson disease (HCC) Seizures (HCC) Stroke (HCC) Vision decreased Urinary problem Prostate hypertrophy Family History Medical History Relation Name Comments Cancer Father Dementia Mother Hypertension Mother Migraines Mother Relation Name Status Comments Father Mother Alive Social History Date Tobacco Use Types Packs/Day Years Used Quit: 09/21/1998 Current Every Day Smoker Pipe Smokeless Tobacco: Never Used Comments: When pain is bad Comments Alcohol Use Standard Drinks/Week No 0 (1 standard drink = 0.6 o z pure alcohol) Sex Assigned at Date Recorded Male 08/18/2020 2:34 PM CDT Last Filed Vital Signs Reading Time Taken Comments Vital Sign 119/71 09/18/2016 1:00 PM CDT Blood Pressure 73 09/18/2016 1:00 PM CDT Pulse - - Temperature - - Respiratory Rate - - Oxygen Saturation - - Inhaled Oxygen Concentration 114 kg (251 lb 4 oz) 09/18/2016 1:00 PM CDT Weight 180.3 cm (5' 10.98") 09/18/2016 1:00 PM CDT Height 35.06 09/18/2016 1:00 PM CDT Body Mass Index Plan of Treatment Health Maintenance Due Date Last Done Comments HIV SCREENING 1972 DTAP/TDAP VACCINES (1 - 1975 Tdap) HEPATITIS C SCREENING 1975 PHYSICAL (COMPREHENSIVE) 1975 EXAM COLORECTAL CANCER 2007 SCREENING SHINGLES RECOMBINANT 2007 VACCINE (1 of 2) INFLUENZA VACCINE 11/06/2020 Results Not on filefrom Last 3 Months Insurance Type Payer Benefit Subscriber ID Effective Phone Address Plan / Dates Group PPO BCBS [facility] [id number] 2016- [phone] [id number] [facility] [place] [phone] Advance Directives Patient Hat Band Attacher Explanation Type Date Recorded Advance Directive/DPOA Care Teams Start Date End Date Crisis Counselor Relationship Specialty 08/04/20 Mega Kim MD PCP - General Family [address] [facility] [address] [place], [place] [id number] 09/21/14 Go Zamarripa MD Neurology [address] [place] [address] 11/03/14 Stanley Sy, PhD Psychiatry 1999 [facility] [address] [place] [address] 11/24/14 Daria Hoang 08/15/20 Jarad Antonio MD Urology [address] [place] [phone]
[2021-04-17] MEDS ORDERED: LACTATED RINGERS 1,000 ML IV ONE (09:34)
[2021-04-17] MEDS ORDERED: HURRICAINE EXT TUBE (BENZOCAINE) XX PRN (09:45)
--- NOTE | 2021-04-17 09:51 | Progress Note-Pre Operative ---
Pre-Operative Progress Note H&P Reviewed The H&P was reviewed, patient examined and no changes noted. Time Seen by Provider: 09:49 Date H&P Reviewed: Apr 17, 2021 Time H&P Reviewed: 09:49 Pre-Operative Diagnosis: GERD, rectal bleed JANEL JACKSON DO Apr 17, 2021 09:51
[2021-04-17] MEDS ORDERED: MIDAZOLAM 2 MG/2 ML (VERSED) VIAL ONE (10:32)
[2021-04-17] MEDS ORDERED: PROPOFOL INJECTION 50 ML IV ONE (10:32)
--- NOTE | 2021-04-17 11:25 | Endoscopy Discharge Instruct ---
Endo Procedure/Findings Findings 1.: Hiatal Hernia, Gastritis 2.: Polyp 3.: Diverticulosis 4.: Internal Hemorrhoids Discharge Instructions - Activity: You might feel a little sleepy until tomorrow. This is due to the medicine you received to relax you. Until tomorrow, you should: NOT drive a car, operate machinery or power tools. NOT drink any alcoholic beverages. NOT make any important decisions or sign importortant papers. Do not return to work until tomorrow, unless otherwise instructed. Resume previous activities tomorrow. Diet: Start by taking liquids. If you tolerate liquids, advance to solid food. 1.: EGD in 3 years 2.: Colonscopy in 5 years Notify Physician - If you experience excessive bleeding, unusual abdominal pain, fever, or chest pain, contact your doctor immediately. JANEL JACKSON DO Apr 17, 2021 11:25
--- NOTE | 2021-04-17 11:25 | Progress Note-Post Operative ---
Post-Operative Progess Note Surgeon (s)/Instructional Paraprofessional (s) Surgeon JANEL JACKSON DO Instructional Paraprofessional: MARIS Perez Pre-Operative Diagnosis GERD, rectal bleed Post-Operative Diagnosis Gastritis Esophagitis Small hiatal hernia Polyps diverticula int hemorrhoids Procedure & Operative Findings Date of Procedure 04/17/21 Procedure Performed/Findings EGD with bx Colon with snare polypectomy PROCEDURE NOTE: After informed consent was obtained, the patient was brought to the endoscopy suite, placed in bed in left lateral decubitus position. He was administered IV sedation by the VALIDATION ENGINEER who then monitored vitals the entire time, heart rate, blood pressure and pulse ox and the scope was inserted down the mouth through the esophagus into the stomach. On the way down, noted some mild esophagitis, took a picture, pushed into the stomach, pushed past the antrum into the duodenum. Duodenum looked good. Pulled back and did a biopsy of antrum, then retroflexed the scope, saw a small hiatal hernia, took a picture of this and then pulled the scope into the GE junction, took another picture of the hiatal hernia and then did a biopsy of the GE junction. Pushed the scope back into the stomach, suctioned all the air out of the stomach. At this point pulled the scope up the esophagus and out the mouth. Switched camera, switched gloves, went down below and started the colonoscopy. On the way in, in the ascending colon found a polyp and did a snare polypectomy. Pushed all the way into about 140 cm to get all the way to cecum, took a picture of the appendiceal orifice. Noted the ileocecal valve and then slowly withdrew the scope, insufflating to look circumferentially at the littlejohn starting in the cecum and up the ascending colon; found another polyp here and did another snare. Contiued up to the hepatic flexure, then down the transverse colon to the splenic flexure, into the descending colon, down into the sigmoid and finally into the rectum. Found a larger polyp up in the rectum and did another snare polypectomy with heat to completely remove it. Finally, retroflexed in the rectal vault, saw some minimal internal hemorrhoids and took a picture of this. The patient tolerated the procedure and he recovered in the endoscopy suite. Anesthesia Type IV sedation by VALIDATION ENGINEER Estimated Blood Loss Estimated blood loss (mL): scant Specimens/Packing Specimens Removed antral bx body of stomach bx GE jxn bx Asc colon polyp x 2 rectal polyp JANEL JACKSON DO Apr 17, 2021 11:25
== END 2021-04-17 12:30 | disposition home or self-care (01) ==
LOC: ENDO 09:30
PROVIDERS: ATTEND Surgery
DX: K29.71 Gastritis, unspecified, with bleeding (principal); K21.01 Gastro-esophageal reflux disease with esophagitis, with bleeding; K44.9 Diaphragmatic hernia without obstruction or gangrene; D12.2 Benign neoplasm of ascending colon; D12.8 Benign neoplasm of rectum; K57.31 Diverticulosis of large intestine without perforation or abscess with bleeding; K64.8 Other hemorrhoids; G20 Parkinson's disease; F17.290 Nicotine dependence, other tobacco product, uncomplicated; Z85.46 Personal history of malignant neoplasm of prostate; Z79.899 Other long term (current) drug therapy